=== PATIENT | male | born 1980 | race African-American/Black ===

== ENCOUNTER 2017-08-09 12:33 | Inpatient (IN) | payer OTHER ==
[2017-08-09 13:18] VITALS: BMI 20.7
--- NOTE | 2017-08-09 14:27 | HP ---
CIWA Score - CIWA Score Nausea/Vomitin Muscle Tremors: 2 Anxiety: 3 Agitation: 2 Paroxysmal Sweats: 3 Orientation: 0-Oriented Tacttile Disturbances: 1-Very Mild Itch/Numbness Auditory Disturbances: 0-None Visual Disturbances: 0-None Headache: 0-None Present CIWA-Ar Total Score: 14 Admission ROS S - HPI Chief Complaint: I have been drinking more than usual and need detox. Allergies/Adverse Reactions: Allergies Allergy/AdvReac Type Severity Reaction Status Date / Time No Known Allergies Allergy Verified 08/09/17 14:13 History of Present Illness: H/O etoh abuse, dep. since age 13 . Pt needs seeking detox. Exam Limitations: No Limitations - Ebola screening Have you traveled outside of the country in the last 21 days: No Have you had contact with anyone from an Ebola affected area: No Have you been sick,other than usual withdrawal symptoms: No - Review of Systems Constitutional: Loss of Appetite, Changes in sleep, Unintentional Wgt. Loss (8 lbs wt loss x 3 months) EENT: reports: No Symptoms Reported Respiratory: reports: No Symptoms reported Cardiac: reports: No Symptoms Reported GI: reports: Poor Appetite, Indigestion : reports: No Symptoms Reported Musculoskeletal: reports: No Symptoms Reported Integumentary: reports: No Symptoms Reported Neuro: reports: Tremors Endocrine: reports: No Symptoms Reported Hematology: reports: No Symptoms Reported Psychiatric: reports: No Sypmtoms Reported Other Systems: Reviewed and Negative Patient History - Patient Medical History Hx Anemia: Yes (NO CURRENT MEDS) Hx Asthma: No Hx Chronic Obstructive Pulmonary Disease (COPD): No Hx Cancer: No Hx Cardiac Disorders: No Hx Congestive Heart Failure: No Hx Hypertension: No Hx Hypercholesterolemia: No Hx Pacemaker: No HX Cerebrovascular Accident: No Hx Seizures: No Hx Dementia: No Hx Diabetes: No Hx Gastrointestinal Disorders: No Hx Genitourinary Disorders: No Hx Sexually Transmitted Disorders: No Hx Renal Disease (ESRD): No Hx Thyroid Disease: No Hx Human Immunodeficiency Virus (HIV): Yes (SINCE JANUARY 2014; HX DX PCP PNEUMONIA AND ORAL THRUSH.) Hx Hepatitis C: No Hx Depression: No Hx Suicide Attempt: Yes (Tried to overdose at age 15 yrs old.) Hx Bipolar Disorder: No Hx Schizophrenia: No - Patient Surgical History Past Surgical History: No Hx Neurologic Surgery: No Hx Cataract Extraction: No Hx Cardiac Surgery: No Hx Lung Surgery: No Hx Breast Surgery: No Hx Breast Biopsy: No Hx Abdominal Surgery: No Hx Appendectomy: No Hx Cholecystectomy: No Hx Genitourinary Surgery: No Hx Section: No Hx Orthopedic Surgery: No Other Surgical History: ORAL SX 02/03 Anesthesia Reaction: No - PPD History Date: 07/03/16 Results: 0 mm - Reproductive History Patient is a Female of Child Bearing Age (11 -55 yrs old): No - Smoking Cessation Smoking history: Current every day smoker Have you smoked in the past 12 months: Yes Aproximately how many cigarettes per day: 10 Cigars Per Day: 0 Hx Chewing Tobacco Use: No Initiated information on smoking cessation: Yes 'Breaking Loose' booklet given: 08/09/17 - Substance & Tx. History Hx Alcohol Use: Yes Hx Substance Use: Yes Substance Use Type: Alcohol, Cocaine Hx Substance Use Treatment: Yes ([facility]) - Substances Abused Alcohol Route: Oral Frequency: Daily Amount used: 1 PINT VODkA Age of first use: 13 Date of Last Use: 08/09/17 Crack Route: Smoking Frequency: Daily Amount used: $30 Age of first use: 31 Date of Last Use: 08/09/17 Marijuana/Hashish Route: Smoking Frequency: 1-2 times per week Amount used: 1 JOINT Age of first use: 13 Date of Last Use: 08/09/17 Family Disease History - Family Disease History Family Disease History: CA: Mother (BREAST &KIDNEY-) Admission Physical Exam BHS - Vital Signs Vital Signs: Vital Signs - 24 hr 08/09/17 13:16 Temperature 97.8 F Pulse Rate 80 Respiratory 18 Rate Blood Pressure 107/64 36 y/o thin m pt aox3 in nad ambulating well - Physical General Appearance: Yes: No Apparent Distress, Appropriately Dressed, Thin, Sweating HEENTM: Yes: EOMI, Hearing grossly Normal, Normal Voice, SUNNY Respiratory: Yes: Chest Non-Tender, Lungs Clear, Normal Breath Sounds, No Respiratory Distress Neck: Yes: No masses,lesions,Nodules, Supple, Trachea in good position Breast: Yes: Within Normal Limits Cardiology: Yes: Regular Rhythm, Regular Rate, S1, S2 Abdominal: Yes: Normal Bowel Sounds, Non Tender, Flat, Soft, Increased Bowel Sounds Genitourinary: Yes: Within Normal Limits Back: Yes: Within Normal Limits Musculoskeletal: Yes: Within Normal Limits Extremities: Yes: Within Normal Limits 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 NML intact, Fully Oriented, Alert, Motor Strength 5/5, Finger to Nose Integumentary: Yes: Moist Lymphatic: Yes: Adenopathy - Diagnostic (1) Alcohol dependence with uncomplicated withdrawal Current Visit: No Status: Chronic (2) Cannabis dependence Current Visit: No Status: Chronic (3) Cocaine dependence Current Visit: No Status: Chronic Qualifiers: Substance use status: uncomplicated Qualified Code(s): F14.20 - Cocaine dependence, uncomplicated (4) Nicotine dependence Current Visit: No Status: Chronic Qualifiers: Nicotine product type: cigarettes Substance use status: uncomplicated Qualified Code(s): F17.210 - Nicotine dependence, cigarettes, uncomplicated (5) Weight loss Current Visit: No Status: Acute (6) AIDS (acquired immune deficiency syndrome) Current Visit: No Status: Chronic Cleared for Admission S - Detox or Rehab [facility] Level of Care: Medically Managed Detox Regimen/Protocol: Librium S Breath Alcohol Content Breath Alcohol Content: 0 Urine Drug Screen - Results Drug Screen Negative: No Urine Drug Screen Results: THC-Marijuana, CHERYL-Cocaine
[2017-08-09] MEDS ORDERED: P-EPHED 60MG/TRIPROLIDI 2.5MG TABLET PO PRN (14:38)
[2017-08-09] MEDS ORDERED: MAGNESIUM CITRATE 300 ML BOTTLE PO PRN (14:38)
[2017-08-09] MEDS ORDERED: IBUPROFEN 400 MG TABLET (FP) PO PRN (14:38)
[2017-08-09] MEDS ORDERED: NICOTINE POLACRILEX 4 MG GUM BUC PRN (14:38)
[2017-08-09] MEDS ORDERED: ACETAMINOPHEN 325 MG TABLET (FP) PO PRN (14:38)
[2017-08-09] MEDS ORDERED: MAGNESIUM HYDROX 2400MG/30ML ORAL SUSPENSION 30 ML CUP PO PRN (14:38)
[2017-08-09] MEDS ORDERED: guaiFENesin/D-METHORPHAN HB 10 ML UNIT-DOSE CUPS PO PRN (14:38)
[2017-08-09] MEDS ORDERED: chlordiazePOXIDE HCL 25 MG CAPSULE PO PRN (14:38)
[2017-08-09] MEDS ORDERED: LOPERAMIDE HCL 2 MG CAPSULE PO PRN (14:38)
[2017-08-09] MEDS ORDERED: MAG HYDROX/AL HYDROX/SIMETH 30 ML UNIT-DOSE CUP PO PRN (14:38)
[2017-08-09] MEDS ORDERED: MENTHOL/PHENOL 1 EACH UD MM PRN (14:38)
[2017-08-09] MEDS ORDERED: COLLOIDAL OATMEAL 1 BAR EACH TP PRN (14:44)
[2017-08-09] MEDS: chlordiazePOXIDE HCL 25 MG CAPSULE PO SCH ×2 (18:05→22:09)
[2017-08-09] MEDS ORDERED: THIAMINE HCL 100 MG TABLET (FP) PO SCH (22:00)
[2017-08-10 01:18] LABS: URINE APPEARANCE CLEAR; URINE BILIRUBIN NEGATIVE (NEGATIVE); URINE BLOOD NEGATIVE (NEGATIVE); URINE COLOR YELLOW; URINE GLUCOSE (UA) NEGATIVE (NEGATIVE); URINE KETONE NEGATIVE (NEGATIVE); URINE LEUK ESTERASE NEGATIVE (NEGATIVE); URINE NITRITE NEGATIVE (NEGATIVE); URINE PROTEIN NEGATIVE (NEGATIVE)
[2017-08-10] MEDS: chlordiazePOXIDE HCL 25 MG CAPSULE PO SCH ×2 (05:38→10:05)
--- NOTE | 2017-08-10 09:15 | PN ---
[facility] CIWA - CIWA Score Nausea/Vomitin-No Nausea/No Vomiting Muscle Tremors: 4-Moderate,w/Arms Extend Anxiety: 4-Mod. Anxious/Guarded Agitation: 4-Moderately Restless Paroxysmal Sweats: 3 Orientation: 0-Oriented Tacttile Disturbances: 0-None Auditory Disturbances: 0-None Visual Disturbances: 0-None Headache: 0-None Present CIWA-Ar Total Score: 15 BHS Progress Note (SOAP) Subjective: sweats shakes interrupted sleep agitation Objective: 08/10/17 09:13 Vital Signs Temperature 97.4 F L 08/10/17 06:26 Pulse Rate 57 L 08/10/17 06:26 Respiratory Rate 16 08/10/17 06:26 Blood Pressure 101/64 08/10/17 06:26 O2 Sat by Pulse Oximetry (%) Laboratory Tests 08/09/17 21:52 Urine Color Yellow Urine Appearance Clear Urine pH 5.0 D Ur Specific [place] 1.029 Urine Protein Negative Urine Glucose (UA) Negative Urine Ketones Negative Urine Blood Negative Urine Nitrite Negative Urine Bilirubin Negative Urine Urobilinogen 2.0 rest of labs pending aaox3 ambulating no acute distress Assessment: 08/10/17 09:14 withdrawal sx Plan: continue detox increase fluids labs pending
[2017-08-10 09:55] LABS: MCH 22.9 pg (25.7-33.7); MCHC 30.3 g/dl (32.0-35.9); MEAN CELL VOLUME 75.4 fl (80-96); MEAN PLT VOLUME 10.3 fl (7.5-11.1); PLATELET COUNT 145 K/MM3 (134-434); RDW 15.7 % (11.9-15.9); WHITE BLOOD COUNT 3.8 K/mm3 (4.0-10.0)
[2017-08-10] MEDS ORDERED: RITONAVIR 100 MG TABLET PO SCH (10:00)
[2017-08-10] MEDS ORDERED: NICOTINE 21 MG/24 HOURS TOPICAL PATCH TD SCH (10:00)
[2017-08-10] MEDS ORDERED: EMTRICITABINE/TENOFOV ALAFENAM (DESCOVY) TABLET PO SCH (10:00)
[2017-08-10] MEDS ORDERED: PRENATAL VITAMINS W/ FOLIC ACID TABLET (FP) PO SCH (10:00)
[2017-08-10] MEDS ORDERED: DARUNAVIR ETHANOLATE 800 MG TAB PO SCH (10:00)
[2017-08-10 10:24] LABS: ALBUMIN 3.1 g/dl (3.4-5.0); ALK PHOS 50 U/L (45-117); ANION GAP 8 (8-16); BILIRUBIN,TOTAL 0.4 mg/dL (0.2-1.0); CALCIUM 8.2 mg/dL (8.5-10.1); CO2 23 mmol/L (21-32); CREATININE 0.8 mg/dL (0.7-1.3); GLUCOSE,RANDOM 87 mg/dL (74-106); SGOT/AST 14 U/L (15-37); SGPT/ALT 22 U/L (12-78); TOT PROT 6.5 g/dl (6.4-8.2)
[2017-08-10 13:27] LABS: URINE LEUK ESTERASE Negative (NEGATIVE)
--- NOTE | 2017-08-10 16:36 | EKG ---
Test Reason : Blood Pressure : / mmHG Vent. Rate : 057 BPM Atrial Rate : 057 BPM P-R Int : 168 ms QRS Dur : 108 ms QT Int : 384 ms P-R-T Axes : 057 -60 061 degrees QTc Int : 373 ms SINUS BRADYCARDIA LEFT AXIS DEVIATION INCOMPLETE RIGHT BUNDLE BRANCH BLOCK ABNORMAL ECG NO PREVIOUS ECGS AVAILABLE Confirmed by RANDAL KELLEY MD ([id number]) on 08/10/2017 4:36:17 PM Referred By: Confirmed By:RANDAL KELLEY MD
[2017-08-10] MEDS ORDERED: chlordiazePOXIDE HCL 25 MG CAPSULE PO SCH (17:00)
[2017-08-10 17:53] VITALS: BP 112/58; PULSE 71; TEMP 98.4
--- NOTE | 2017-08-10 23:13 | DS ---
[facility] Detox Discharge Summary Admission Date: 08/09/17 Discharge Date: 08/10/17 - History Present History: Alcohol Dependence Additional Comments: PATIENT INSISTS TO LEAVE THE FACILITY REFUSES FACE TO FACE WITH THE PROVIDER - Physical Exam Results Vital Signs: Vital Signs Temperature 98.4 F 08/10/17 17:52 Pulse Rate 71 08/10/17 17:52 Respiratory Rate 18 08/10/17 17:52 Blood Pressure 112/58 08/10/17 17:52 O2 Sat by Pulse Oximetry (%) Pertinent Admission Physical Exam Findings: WITHDRAWAL SX Vital Signs Temperature 98.4 F 08/10/17 17:52 Pulse Rate 71 08/10/17 17:52 Respiratory Rate 18 08/10/17 17:52 Blood Pressure 112/58 08/10/17 17:52 O2 Sat by Pulse Oximetry (%) Laboratory Last Values WBC 3.8 K/mm3 (4.0-10.0) L 08/10/17 07:00 RBC 5.37 M/mm3 (4.00-5.60) 08/10/17 07:00 Hgb 12.3 GM/dL (11.7-16.9) 08/10/17 07:00 Hct 40.5 % (35.4-49) 08/10/17 07:00 MCV 75.4 fl (80-96) L 08/10/17 07:00 MCH 22.9 pg (25.7-33.7) L 08/10/17 07:00 MCHC 30.3 g/dl (32.0-35.9) L 08/10/17 07:00 RDW 15.7 % (11.9-15.9) 08/10/17 07:00 Plt Count 145 K/MM3 (134-434) 08/10/17 07:00 MPV 10.3 fl (7.5-11.1) 08/10/17 07:00 Sodium 143 mmol/L (136-145) 08/10/17 07:00 Potassium 4.4 mmol/L (3.5-5.1) 08/10/17 07:00 Chloride 112 mmol/L (98-107) H 08/10/17 07:00 Carbon Dioxide 23 mmol/L (21-32) 08/10/17 07:00 Anion Gap 8 (8-16) 08/10/17 07:00 BUN 13 mg/dL (7-18) 08/10/17 07:00 Creatinine 0.8 mg/dL (0.7-1.3) D 08/10/17 07:00 Creat Clearance w eGFR > 60 (>60) 08/10/17 07:00 Random Glucose 87 mg/dL (74-106) 08/10/17 07:00 Calcium 8.2 mg/dL (8.5-10.1) L 08/10/17 07:00 Total Bilirubin 0.4 mg/dL (0.2-1.0) D 08/10/17 07:00 AST 14 U/L (15-37) L 08/10/17 07:00 ALT 22 U/L (12-78) 08/10/17 07:00 Alkaline Phosphatase 50 U/L (45-117) D 08/10/17 07:00 Total Protein 6.5 g/dl (6.4-8.2) 08/10/17 07:00 Albumin 3.1 g/dl (3.4-5.0) L 08/10/17 07:00 Urine Color Yellow 08/09/17 21:52 Urine Appearance Clear 08/09/17 21:52 Urine pH 5.0 (5.0-8.0) D 08/09/17 21:52 Ur Specific [place] 1.029 (1.001-1.035) 08/09/17 21:52 Urine Protein Negative (NEGATIVE) 08/09/17 21:52 Urine Glucose (UA) Negative (NEGATIVE) 08/09/17 21:52 Urine Ketones Negative (NEGATIVE) 08/09/17 21:52 Urine Blood Negative (NEGATIVE) 08/09/17 21:52 Urine Nitrite Negative (NEGATIVE) 08/09/17 21:52 Urine Bilirubin Negative (NEGATIVE) 08/09/17 21:52 Urine Urobilinogen 2.0 mg/dL (0.2-1.0) 08/09/17 21:52 Ur Leukocyte Esterase Negative (NEGATIVE) 08/09/17 21:52 LAB NOTED - Treatment Hospital Course: Detox Protocol Followed, Discharged Condition Good - Medication Discharge Medications: Ambulatory Orders Emtricitabine/Tenofovir [Truvada -] 1 tab PO DAILY 05/19/15 Emtricitabine/Tenofov Alafenam [Descovy 200-25 mg Tablet (Nf)] 1 each PO DAILY 08/09/17 - Diagnosis (1) Weight loss Status: Acute (2) AIDS (acquired immune deficiency syndrome) Status: Chronic (3) Alcohol dependence with uncomplicated withdrawal Status: Acute (4) Nicotine dependence Status: Acute Qualifiers: Nicotine product type: cigarettes Substance use status: in withdrawal Qualified Code(s): F17.213 - Nicotine dependence, cigarettes, with withdrawal - AMA Did Patient Leave Against Medical Advice: Yes
[2017-08-11] MEDS ORDERED: chlordiazePOXIDE 5 MG CAPSULE PO SCH (17:00)
[2017-08-12] MEDS ORDERED: chlordiazePOXIDE HCL 10 MG CAPSULE PO SCH (17:00)
== END 2017-08-10 18:30 | disposition left against medical advice (07) | DRG 770 ==
LOC: YASAS 12:33 → Y6N 15:22
PROVIDERS: ADMIT Internal Medicine; ATTEND Internal Medicine
PROC: HZ2ZZZZ Detoxification Services for Substance Abuse Treatment (ICD-10-PCS; principal; 2017-08-09)
DX: F10.230 Alcohol dependence with withdrawal, uncomplicated (principal); F14.20 Cocaine dependence, uncomplicated; F12.20 Cannabis dependence, uncomplicated; F17.213 Nicotine dependence, cigarettes, with withdrawal; F19.24 Other psychoactive substance dependence with psychoactive substance-induced mood disorder; B20 Human immunodeficiency virus [HIV] disease; L98.8 Other specified disorders of the skin and subcutaneous tissue; A60.01 Herpesviral infection of penis; G62.9 Polyneuropathy, unspecified; Z87.898 Personal history of other specified conditions; Z91.5 Personal history of self-harm
CPT/HCPCS: 36415; 80053; 81003; 85027; 86593; 93005; 93010

== ENCOUNTER 2018-03-05 10:17 | Inpatient (IN) | payer OTHER ==
[2018-03-05 10:34] VITALS: BMI 21.0
--- NOTE | 2018-03-05 10:59 | HP ---
CIWA Score - CIWA Score Nausea/Vomitin-No Nausea/No Vomiting Muscle Tremors: 1-None Visible, but [place] Anxiety: 4-Mod. Anxious/Guarded Agitation: 3 Paroxysmal Sweats: 2 Orientation: 0-Oriented Tacttile Disturbances: 0-None Auditory Disturbances: 2-Mild Harshness/Frighten Visual Disturbances: 0-None Headache: 1-Very Mild CIWA-Ar Total Score: 13 Admission [facility] - HPI Chief Complaint: ETOH WITHDRAWAL SYMPTOMS. Allergies/Adverse Reactions: Allergies Allergy/AdvReac Type Severity Reaction Status Date / Time No Known Allergies Allergy Verified 03/05/18 10:32 History of Present Illness: PATIENT PRESENTS WITH ETOH WITHDRAWAL SYMPTOMS AND COCAINE/MARIJUANA DEPENDENCE. PATIENT STARTED DRINKING AND SMOKING MARIJUANA AT AGE 14. PATIENT STARTED SMOKING CRACK AT AGE 32. LAST TIME ALL SUBSTANCES USED WAS YESTERDAY. PATIENT DRINKS 1/2 PINT OF LIQUOR WITH 4-5 BEERS DAILY, 1-2 JOINTS WEEKLY AND 20 DOLLARS OF CRACK DAILY. DENIES HX OF SEIZURES. PMH INCLUDES HIV/AIDS. PATIENT STATES HE IS COMPLIANT WITH MEDICATION AND LAST DOSE THIS MORNING. PATIENT DOES NOT HAVE MEDICINE WITH HIM. DENIES SI/HI AND SUICIDE ATTEMPTS. LAST DETOX ADMISSION 08/06. Exam Limitations: No Limitations - Ebola screening Have you traveled outside of the country in the last 21 days: No Have you had contact with anyone from an Ebola affected area: No Have you been sick,other than usual withdrawal symptoms: No Do you have a fever: No - Review of Systems Constitutional: Night Sweats, Changes in sleep, Unintentional Wgt. Loss EENT: reports: No Symptoms Reported Respiratory: reports: No Symptoms reported Cardiac: reports: No Symptoms Reported GI: reports: Poor Fluid Intake, Abdominal cramping : reports: No Symptoms Reported Musculoskeletal: reports: No Symptoms Reported Integumentary: reports: Sweating Neuro: reports: Tremors Endocrine: reports: Unexplained Weight Loss Hematology: reports: No Symptoms Reported Psychiatric: reports: Orientated x3, Agitated, Anxious, Depressed Patient History - Patient Medical History Hx Anemia: Yes (NO CURRENT MEDS) Hx Asthma: No Hx Chronic Obstructive Pulmonary Disease (COPD): No Hx Cancer: No Hx Cardiac Disorders: No Hx Congestive Heart Failure: No Hx Hypertension: No Hx Hypercholesterolemia: No Hx Pacemaker: No HX Cerebrovascular Accident: No Hx Seizures: No Hx Dementia: No Hx Diabetes: No Hx Gastrointestinal Disorders: No Hx Liver Disease: No Hx Genitourinary Disorders: No Hx Sexually Transmitted Disorders: No Hx Renal Disease (ESRD): No Hx Thyroid Disease: No Hx Human Immunodeficiency Virus (HIV): Yes (SINCE JANUARY 2014; HX DX PCP PNEUMONIA AND ORAL THRUSH.) Hx Hepatitis C: No Hx Depression: No Hx Suicide Attempt: No Hx Bipolar Disorder: No Hx Schizophrenia: No - Patient Surgical History Past Surgical History: No Hx Neurologic Surgery: No Hx Cataract Extraction: No Hx Cardiac Surgery: No Hx Lung Surgery: No Hx Breast Surgery: No Hx Breast Biopsy: No Hx Abdominal Surgery: No Hx Appendectomy: No Hx Cholecystectomy: No Hx Genitourinary Surgery: No Hx Orthopedic Surgery: No Other Surgical History: ORAL SX 02/03 Anesthesia Reaction: No - PPD History Previous Implant?: Yes Documented Results: Negative w/proof Implanted On Prior [facility] Admission?: Yes Date: 07/03/16 Results: 0 mm PPD to be Administered?: Yes - Smoking Cessation Smoking history: Current every day smoker Have you smoked in the past 12 months: Yes Aproximately how many cigarettes per day: 10 Cigars Per Day: 0 Hx Chewing Tobacco Use: No Initiated information on smoking cessation: Yes 'Breaking Loose' booklet given: 03/05/18 - Substance & Tx. History Hx Alcohol Use: Yes Hx Substance Use: Yes Substance Use Type: Alcohol, Cocaine, Marijuana - Substances Abused Crack Route: Smoking Frequency: Daily Amount used: $20 Age of first use: 30 Date of Last Use: 03/04/18 Alcohoil-vodka/beer Route: Oral Frequency: Daily Amount used: 1/2 pt./3-6 (12 oz.) Age of first use: 14 Date of Last Use: 03/04/18 Marijuana Route: Smoking Frequency: 3-6 times per week Amount used: $10 Age of first use: 14 Date of Last Use: 03/03/18 Family Disease History - Family Disease History Family Disease History: CA: Mother (BREAST &KIDNEY-) Admission Physical Exam BHS - Vital Signs Vital Signs: Vital Signs - 24 hr 03/05/18 10:28 Temperature 97.7 F Pulse Rate 58 L Respiratory 16 Rate Blood Pressure 117/69 - Physical General Appearance: Yes: No Apparent Distress, Appropriately Dressed, Thin, Tremorous, Irritable, Sweating HEENTM: Yes: EOMI, Hearing grossly Normal, Normocephalic, Normal Voice, SUNNY, Pharynx Normal Respiratory: Yes: Chest Non-Tender, Lungs Clear, Normal Breath Sounds, No Respiratory Distress, No Accessory Muscle Use Neck: Yes: No masses,lesions,Nodules, Supple Breast: Yes: Breast Exam Deferred Cardiology: Yes: Regular Rhythm, Regular Rate, S1, S2 Abdominal: Yes: Within Normal Limits, Normal Bowel Sounds, Non Tender, Flat Genitourinary: Yes: Within Normal Limits Back: Yes: Muscle Spasm Musculoskeletal: Yes: full range of Motion, Gait Steady, Back pain Extremities: Yes: Normal Inspection, Normal Range of Motion, Non-Tender, Tremors 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 NML intact, Fully Oriented, Alert, Motor Strength 5/5, Normal Response, Depressed Affect Integumentary: Yes: Normal Color, Warm, Moist Lymphatic: Yes: Within Normal Limits - Diagnostic (1) Alcohol dependence with uncomplicated withdrawal Current Visit: Yes Status: Acute (2) History of depression Current Visit: Yes Status: Suspected (3) Nicotine dependence Current Visit: Yes Status: Chronic Qualifiers: Nicotine product type: cigarettes Substance use status: uncomplicated Qualified Code(s): F17.210 - Nicotine dependence, cigarettes, uncomplicated (4) Weight loss Current Visit: Yes Status: Acute (5) AIDS (acquired immune deficiency syndrome) Current Visit: Yes Status: Chronic (6) Cannabis dependence Current Visit: Yes Status: Chronic (7) Cocaine dependence Current Visit: Yes Status: Chronic Qualifiers: Substance use status: uncomplicated Qualified Code(s): F14.20 - Cocaine dependence, uncomplicated Cleared for Admission [facility] - Detox or Rehab [facility] Level of Care: Medically Managed Detox Regimen/Protocol: Librium [facility] Breath Alcohol Content Breath Alcohol Content: 0 Urine Drug Screen - Results Drug Screen Negative: No Urine Drug Screen Results: THC-Marijuana, CHERYL-Cocaine
[2018-03-05] MEDS ORDERED: P-EPHED 60MG/TRIPROLIDI 2.5MG TABLET PO PRN (11:12)
[2018-03-05] MEDS ORDERED: IBUPROFEN 400 MG TABLET (FP) PO PRN (11:12)
[2018-03-05] MEDS ORDERED: hydrOXYzine PAMOATE 50 MG CAPSULE (FP) PO PRN (11:12)
[2018-03-05] MEDS ORDERED: MAGNESIUM CITRATE 300 ML BOTTLE PO PRN (11:12)
[2018-03-05] MEDS ORDERED: LOPERAMIDE HCL 2 MG CAPSULE PO PRN (11:12)
[2018-03-05] MEDS ORDERED: MAG HYDROX/AL HYDROX/SIMETH 30 ML UNIT-DOSE CUP PO PRN (11:12)
[2018-03-05] MEDS ORDERED: MENTHOL/PHENOL 1 EACH UD MM PRN (11:12)
[2018-03-05] MEDS ORDERED: guaiFENesin/D-METHORPHAN HB 10 ML UNIT-DOSE CUPS PO PRN (11:12)
[2018-03-05] MEDS ORDERED: MAGNESIUM HYDROX 2400MG/30ML ORAL SUSPENSION 30 ML CUP PO PRN (11:12)
[2018-03-05] MEDS ORDERED: ACETAMINOPHEN 325 MG TABLET (FP) PO PRN (11:12)
[2018-03-05] MEDS ORDERED: chlordiazePOXIDE HCL 25 MG CAPSULE PO PRN (11:17)
--- NOTE | 2018-03-05 11:23 | CONSULT ---
[facility] Psychiatric Consult - Data Date of interview: 03/05/18 Admission source: [facility] Identifying data: This is 37 years male, single father of three, living alone, on PA, with no psychiatric hospitalization history, is here reporting withdrawal symptoms of Alcohol and Cocaine, Cannabis intoxication and seeking for detox. Substance Abuse History: Smoking history: Current every day smoker. Have you smoked in the past 12 months: Yes. Aproximately how many cigarettes per day: 10. Cigars Per Day: 0. Hx Chewing Tobacco Use: No. Initiated information on smoking cessation: Yes. 'Breaking Loose' booklet given: 03/05/18. - Substance & Tx. History. Hx Alcohol Use: Yes. Hx Substance Use: Yes. Substance Use Type : Alcohol, Cocaine, Marijuana. - Substances Abused. Crack. Route: Smoking. Frequency: Daily. Amount used: $20. Age of first use: 30. Date of Last Use: 03/04/18. Alcohoil-vodka/beer. Route: Oral. Frequency: Daily. Amount used: 1/2 pt./3-6 (12 oz.). Age of first use: 14. Date of Last Use: . Marijuana. Route: Smoking. Frequency: 3-6 times per week. Amount used: $10. Age of first use: 14. Date of Last Use: 03/03/18 Medical History: Weight loss history, AIDs, Psychiatric History: Patient reports history of depression, reports no medications taking prior to admission, reports [id number] suicidal, homicidal history as well. Physical/Sexual Abuse/Trauma History: Denies Additional Comment: Observation. Detox Unit Care Protocol Mental Status Exam - Mental Status Exam Alert and Oriented to: Person Cognitive Function: Fair Patient Appearance: Well Groomed Mood: Apprehensive Affect: Mood Congruent Patient Behavior: Cooperative Speech Pattern: Appropriate Voice Loudness: Normal Thought Process: Goal Oriented Thought Disorder: Being Controlled Hallucinations: Denies Suicidal Ideation: Denies Homicidal Ideation: Denies Insight/Judgement: Fair Sleep: Difficulty falling asleep Appetite: Weight loss Muscle strength/Tone: Normal Gait/Station: Normal Additional Comments: Observation. Detox Unit Care Protocol Psychiatric Findings - Problem List ([place] 1, 2,3) (1) Drug-induced mood disorder Current Visit: Yes Status: Acute (2) Alcohol dependence with uncomplicated withdrawal Current Visit: Yes Status: Acute (3) Weight loss Current Visit: Yes Status: Acute (4) AIDS (acquired immune deficiency syndrome) Current Visit: Yes Status: Chronic (5) Cannabis dependence Current Visit: Yes Status: Chronic (6) Cocaine dependence Current Visit: Yes Status: Chronic Qualifiers: Substance use status: uncomplicated Qualified Code(s): F14.20 - Cocaine dependence, uncomplicated (7) Nicotine dependence Current Visit: Yes Status: Chronic Qualifiers: Nicotine product type: cigarettes Substance use status: uncomplicated Qualified Code(s): F17.210 - Nicotine dependence, cigarettes, uncomplicated (8) Neuropathy Current Visit: No Status: Chronic - Initial Treatment Plan Initial Treatment Plan: Observation. Detox Unit Care Protocol
[2018-03-05 15:00] LABS: HEMATOCRIT 40.7 % (35.4-49); HEMOGLOBIN 12.8 GM/dL (11.7-16.9); MCH 23.4 pg (25.7-33.7); MCHC 31.4 g/dl (32.0-35.9); MEAN CELL VOLUME 74.7 fl (80-96); MEAN PLT VOLUME 10.8 fl (7.5-11.1); PLATELET COUNT 166 K/MM3 (134-434); RBC 5.45 M/mm3 (4.00-5.60); RDW 15.1 % (11.9-15.9); WHITE BLOOD COUNT 4.3 K/mm3 (4.0-10.0)
[2018-03-05 15:13] LABS: ALBUMIN 3.6 g/dl (3.4-5.0); ANION GAP 6 (8-16); BLOOD UREA NITROGEN 14 mg/dL (7-18); CALCIUM 8.9 mg/dL (8.5-10.1); CHLORIDE 111 mmol/L (98-107); CO2 24 mmol/L (21-32); CREATININE 1.1 mg/dL (0.7-1.3); GLUCOSE,RANDOM 94 mg/dL (74-106); POTASSIUM 4.1 mmol/L (3.5-5.1); SGOT/AST 24 U/L (15-37); SGPT/ALT 25 U/L (12-78); SODIUM 141 mmol/L (136-145)
[2018-03-05 15:15] LABS: ALK PHOS 58 U/L (45-117); BILIRUBIN,TOTAL 0.4 mg/dL (0.2-1.0); TOT PROT 7.2 g/dl (6.4-8.2)
[2018-03-05 17:28] LABS: URINE APPEARANCE CLEAR; URINE BILIRUBIN NEGATIVE (<2.0 mg/dL); URINE COLOR YELLOW; URINE GLUCOSE (UA) NEGATIVE (NEGATIVE); URINE KETONE NEGATIVE (NEGATIVE); URINE LEUK ESTERASE NEGATIVE (NEGATIVE); URINE NITRITE NEGATIVE (NEGATIVE); URINE PROTEIN NEGATIVE (NEGATIVE); URINE UROBILINOGEN NEGATIVE mg/dL (0.2-1.0)
[2018-03-05] MEDS: chlordiazePOXIDE HCL 25 MG CAPSULE PO SCH ×3 (17:32→22:40)
[2018-03-05] MEDS ORDERED: MELATONIN 5 MG TABLETS PO PRN (22:00)
[2018-03-05] MEDS: THIAMINE HCL 100 MG TABLET (FP) PO SCH (22:40)
[2018-03-06] MEDS: chlordiazePOXIDE HCL 25 MG CAPSULE PO SCH ×4 (05:20→22:07)
[2018-03-06] MEDS ORDERED: LIDOCAINE VISCOUS 2% ORAL/TOP 20 ML UNIT-DOSE CUP MM PRN (08:57)
--- NOTE | 2018-03-06 09:14 | PN ---
S CIWA - CIWA Score Nausea/Vomitin-Mild Nausea/No Vomiting Muscle Tremors: 4-Moderate,w/Arms Extend Anxiety: 2 Agitation: 3 Paroxysmal Sweats: 1-Minimal Palms Moist Orientation: 0-Oriented Tacttile Disturbances: 1-Very Mild Itch/Numbness Auditory Disturbances: 0-None Visual Disturbances: 0-None Headache: 2-Mild CIWA-Ar Total Score: 14 BHS Progress Note (SOAP) Subjective: sweat tremor restlessness c/o left lower tooth ache denies trauma Objective: 03/06/18 09:10 Vital Signs Temperature 96.1 F L 03/06/18 07:53 Pulse Rate 59 L 03/06/18 07:53 Respiratory Rate 18 03/06/18 07:53 Blood Pressure 105/59 03/06/18 07:53 O2 Sat by Pulse Oximetry (%) Laboratory Last Values WBC 4.3 K/mm3 (4.0-10.0) 03/05/18 11:05 RBC 5.45 M/mm3 (4.00-5.60) 03/05/18 11:05 Hgb 12.8 GM/dL (11.7-16.9) 03/05/18 11:05 Hct 40.7 % (35.4-49) 03/05/18 11:05 MCV 74.7 fl (80-96) L 03/05/18 11:05 MCH 23.4 pg (25.7-33.7) L 03/05/18 11:05 MCHC 31.4 g/dl (32.0-35.9) L 03/05/18 11:05 RDW 15.1 % (11.9-15.9) 03/05/18 11:05 Plt Count 166 K/MM3 (134-434) 03/05/18 11:05 MPV 10.8 fl (7.5-11.1) 03/05/18 11:05 Sodium 141 mmol/L (136-145) 03/05/18 11:05 Potassium 4.1 mmol/L (3.5-5.1) 03/05/18 11:05 Chloride 111 mmol/L (98-107) H 03/05/18 11:05 Carbon Dioxide 24 mmol/L (21-32) 03/05/18 11:05 Anion Gap 6 (8-16) L 03/05/18 11:05 BUN 14 mg/dL (7-18) 03/05/18 11:05 Creatinine 1.1 mg/dL (0.7-1.3) 03/05/18 11:05 Creat Clearance w eGFR > 60 (>60) 03/05/18 11:05 Random Glucose 94 mg/dL (74-106) 03/05/18 11:05 Calcium 8.9 mg/dL (8.5-10.1) 03/05/18 11:05 Total Bilirubin 0.4 mg/dL (0.2-1.0) 03/05/18 11:05 AST 24 U/L (15-37) D 03/05/18 11:05 ALT 25 U/L (12-78) 03/05/18 11:05 Alkaline Phosphatase 58 U/L (45-117) 03/05/18 11:05 Total Protein 7.2 g/dl (6.4-8.2) 03/05/18 11:05 Albumin 3.6 g/dl (3.4-5.0) 03/05/18 11:05 Urine Color Yellow 03/05/18 16:00 Urine Appearance Clear 03/05/18 16:00 Urine pH 5.0 (5.0-8.0) 03/05/18 16:00 Ur Specific [place] 1.027 (1.001-1.035) 03/05/18 16:00 Urine Protein Negative (NEGATIVE) 03/05/18 16:00 Urine Glucose (UA) Negative (NEGATIVE) 03/05/18 16:00 Urine Ketones Negative (NEGATIVE) 03/05/18 16:00 Urine Blood Negative (NEGATIVE) 03/05/18 16:00 Urine Nitrite Negative (NEGATIVE) 03/05/18 16:00 Urine Bilirubin Negative (<2.0 mg/dL) 03/05/18 16:00 Urine Urobilinogen Negative mg/dL (0.2-1.0) 03/05/18 16:00 Ur Leukocyte Esterase Negative (NEGATIVE) 03/05/18 16:00 RPR Titer Nonreactive (NONREACTIVE) 03/05/18 11:05 lab noted left lower tooth decay able to chew regular food ate 90% breakfast speech clearly no drooling Assessment: 03/06/18 09:12 withdrawal sx tooth decay Plan: continue detox lidocain 2% chlorhexidine mouth rinsing after each meal amoxicillin 500 mg tid oral hygiene
[2018-03-06] MEDS: PRENATAL VITAMINS W/ FOLIC ACID TABLET (FP) PO SCH (10:17)
[2018-03-06] MEDS: EMTRICITABINE/TENOFOV ALAFENAM (DESCOVY) TABLET PO SCH (10:18)
[2018-03-06] MEDS: DARUNAVIR 800 MG/COBICISTAT 150MG TABLET PO SCH (10:18)
--- NOTE | 2018-03-06 11:32 | EKG ---
Test Reason : Blood Pressure : / mmHG Vent. Rate : 057 BPM Atrial Rate : 057 BPM P-R Int : 168 ms QRS Dur : 118 ms QT Int : 392 ms P-R-T Axes : 065 -65 056 degrees QTc Int : 381 ms SINUS BRADYCARDIA LEFT AXIS DEVIATION INCOMPLETE RIGHT BUNDLE BRANCH BLOCK ABNORMAL ECG Confirmed by MD BRYANT, YOGI ([id number]) on 03/06/2018 11:32:12 AM Referred By: Confirmed By:YOGI HURTADO MD
[2018-03-06] MEDS: CHLORHEXIDINE GLUCONATE 118 ML MOUTHWASH MM SCH ×2 (14:17→22:08)
[2018-03-06] MEDS: AMOXICILLIN 500 MG CAPSULE (FP) PO SCH ×2 (14:32→22:07)
[2018-03-06] MEDS: THIAMINE HCL 100 MG TABLET (FP) PO SCH (22:07)
[2018-03-07] MEDS: AMOXICILLIN 500 MG CAPSULE (FP) PO SCH ×2 (05:14→14:14)
[2018-03-07] MEDS: chlordiazePOXIDE HCL 25 MG CAPSULE PO SCH ×2 (05:15→10:36)
[2018-03-07] MEDS: CHLORHEXIDINE GLUCONATE 118 ML MOUTHWASH MM SCH ×2 (05:15→14:15)
[2018-03-07] MEDS: PRENATAL VITAMINS W/ FOLIC ACID TABLET (FP) PO SCH (10:35)
[2018-03-07] MEDS: EMTRICITABINE/TENOFOV ALAFENAM (DESCOVY) TABLET PO SCH (10:36)
[2018-03-07] MEDS: DARUNAVIR 800 MG/COBICISTAT 150MG TABLET PO SCH (10:36)
--- NOTE | 2018-03-07 10:38 | PN ---
S CIWA - CIWA Score Nausea/Vomitin-Mild Nausea/No Vomiting Muscle Tremors: 4-Moderate,w/Arms Extend Anxiety: 3 Agitation: 3 Paroxysmal Sweats: 1-Minimal Palms Moist Orientation: 0-Oriented Tacttile Disturbances: 0-None Auditory Disturbances: 0-None Visual Disturbances: 0-None Headache: 0-None Present CIWA-Ar Total Score: 12 BHS Progress Note (SOAP) Subjective: sweat tremor restlessness irritable anxiety Objective: 03/07/18 10:42 Vital Signs Temperature 97.5 F L 03/07/18 09:16 Pulse Rate 54 L 03/07/18 09:16 Respiratory Rate 18 03/07/18 09:16 Blood Pressure 105/68 03/07/18 09:16 O2 Sat by Pulse Oximetry (%) Laboratory Last Values WBC 4.3 K/mm3 (4.0-10.0) 03/05/18 11:05 RBC 5.45 M/mm3 (4.00-5.60) 03/05/18 11:05 Hgb 12.8 GM/dL (11.7-16.9) 03/05/18 11:05 Hct 40.7 % (35.4-49) 03/05/18 11:05 MCV 74.7 fl (80-96) L 03/05/18 11:05 MCH 23.4 pg (25.7-33.7) L 03/05/18 11:05 MCHC 31.4 g/dl (32.0-35.9) L 03/05/18 11:05 RDW 15.1 % (11.9-15.9) 03/05/18 11:05 Plt Count 166 K/MM3 (134-434) 03/05/18 11:05 MPV 10.8 fl (7.5-11.1) 03/05/18 11:05 Sodium 141 mmol/L (136-145) 03/05/18 11:05 Potassium 4.1 mmol/L (3.5-5.1) 03/05/18 11:05 Chloride 111 mmol/L (98-107) H 03/05/18 11:05 Carbon Dioxide 24 mmol/L (21-32) 03/05/18 11:05 Anion Gap 6 (8-16) L 03/05/18 11:05 BUN 14 mg/dL (7-18) 03/05/18 11:05 Creatinine 1.1 mg/dL (0.7-1.3) 03/05/18 11:05 Creat Clearance w eGFR > 60 (>60) 03/05/18 11:05 Random Glucose 94 mg/dL (74-106) 03/05/18 11:05 Calcium 8.9 mg/dL (8.5-10.1) 03/05/18 11:05 Total Bilirubin 0.4 mg/dL (0.2-1.0) 03/05/18 11:05 AST 24 U/L (15-37) D 03/05/18 11:05 ALT 25 U/L (12-78) 03/05/18 11:05 Alkaline Phosphatase 58 U/L (45-117) 03/05/18 11:05 Total Protein 7.2 g/dl (6.4-8.2) 03/05/18 11:05 Albumin 3.6 g/dl (3.4-5.0) 03/05/18 11:05 Urine Color Yellow 03/05/18 16:00 Urine Appearance Clear 03/05/18 16:00 Urine pH 5.0 (5.0-8.0) 03/05/18 16:00 Ur Specific [place] 1.027 (1.001-1.035) 03/05/18 16:00 Urine Protein Negative (NEGATIVE) 03/05/18 16:00 Urine Glucose (UA) Negative (NEGATIVE) 03/05/18 16:00 Urine Ketones Negative (NEGATIVE) 03/05/18 16:00 Urine Blood Negative (NEGATIVE) 03/05/18 16:00 Urine Nitrite Negative (NEGATIVE) 03/05/18 16:00 Urine Bilirubin Negative (<2.0 mg/dL) 03/05/18 16:00 Urine Urobilinogen Negative mg/dL (0.2-1.0) 03/05/18 16:00 Ur Leukocyte Esterase Negative (NEGATIVE) 03/05/18 16:00 RPR Titer Nonreactive (NONREACTIVE) 03/05/18 11:05 lab noted Assessment: 03/07/18 10:43 withdrawal sx Plan: continue detox
[2018-03-07] MEDS ORDERED: COLLOIDAL OATMEAL 1 BAR EACH TP PRN (11:57)
[2018-03-07 15:33] VITALS: BP 113/61; PULSE 67; TEMP 97.7
--- NOTE | 2018-03-07 16:08 | DS ---
[facility] Detox Discharge Summary Admission Date: 03/05/18 Discharge Date: 03/07/18 - History Present History: Alcohol Dependence Additional Comments: 37 years old male admitted on 03/05/18 for alcohol withdrawal sx insists to terminate alcohol detox regimen patient wants to follow up with Dr. Keenan for medical mental and addiction issues patient stated that "I need a break" and feeling well rested alert oriented x 3 no acute distress coherent speech denies homocidal denies suicidal no self destructive behavior Pertinent Past History: encourage the patient follow up with infectious disease provider for medical mental and addiction issues health teaching on ART adherence - Physical Exam Results Vital Signs: Vital Signs Temperature 97.7 F 03/07/18 15:33 Pulse Rate 67 03/07/18 15:33 Respiratory Rate 18 03/07/18 15:33 Blood Pressure 113/61 03/07/18 15:33 O2 Sat by Pulse Oximetry (%) Pertinent Admission Physical Exam Findings: alcohol withdrawal sx Vital Signs Temperature 97.7 F 03/07/18 15:33 Pulse Rate 67 03/07/18 15:33 Respiratory Rate 18 03/07/18 15:33 Blood Pressure 113/61 03/07/18 15:33 O2 Sat by Pulse Oximetry (%) Laboratory Last Values WBC 4.3 K/mm3 (4.0-10.0) 03/05/18 11:05 RBC 5.45 M/mm3 (4.00-5.60) 03/05/18 11:05 Hgb 12.8 GM/dL (11.7-16.9) 03/05/18 11:05 Hct 40.7 % (35.4-49) 03/05/18 11:05 MCV 74.7 fl (80-96) L 03/05/18 11:05 MCH 23.4 pg (25.7-33.7) L 03/05/18 11:05 MCHC 31.4 g/dl (32.0-35.9) L 03/05/18 11:05 RDW 15.1 % (11.9-15.9) 03/05/18 11:05 Plt Count 166 K/MM3 (134-434) 03/05/18 11:05 MPV 10.8 fl (7.5-11.1) 03/05/18 11:05 Sodium 141 mmol/L (136-145) 03/05/18 11:05 Potassium 4.1 mmol/L (3.5-5.1) 03/05/18 11:05 Chloride 111 mmol/L (98-107) H 03/05/18 11:05 Carbon Dioxide 24 mmol/L (21-32) 03/05/18 11:05 Anion Gap 6 (8-16) L 03/05/18 11:05 BUN 14 mg/dL (7-18) 03/05/18 11:05 Creatinine 1.1 mg/dL (0.7-1.3) 03/05/18 11:05 Creat Clearance w eGFR > 60 (>60) 03/05/18 11:05 Random Glucose 94 mg/dL (74-106) 03/05/18 11:05 Calcium 8.9 mg/dL (8.5-10.1) 03/05/18 11:05 Total Bilirubin 0.4 mg/dL (0.2-1.0) 03/05/18 11:05 AST 24 U/L (15-37) D 03/05/18 11:05 ALT 25 U/L (12-78) 03/05/18 11:05 Alkaline Phosphatase 58 U/L (45-117) 03/05/18 11:05 Total Protein 7.2 g/dl (6.4-8.2) 03/05/18 11:05 Albumin 3.6 g/dl (3.4-5.0) 03/05/18 11:05 Urine Color Yellow 03/05/18 16:00 Urine Appearance Clear 03/05/18 16:00 Urine pH 5.0 (5.0-8.0) 03/05/18 16:00 Ur Specific [place] 1.027 (1.001-1.035) 03/05/18 16:00 Urine Protein Negative (NEGATIVE) 03/05/18 16:00 Urine Glucose (UA) Negative (NEGATIVE) 03/05/18 16:00 Urine Ketones Negative (NEGATIVE) 03/05/18 16:00 Urine Blood Negative (NEGATIVE) 03/05/18 16:00 Urine Nitrite Negative (NEGATIVE) 03/05/18 16:00 Urine Bilirubin Negative (<2.0 mg/dL) 03/05/18 16:00 Urine Urobilinogen Negative mg/dL (0.2-1.0) 03/05/18 16:00 Ur Leukocyte Esterase Negative (NEGATIVE) 03/05/18 16:00 RPR Titer Nonreactive (NONREACTIVE) 03/05/18 11:05 lab noted - Treatment Hospital Course: Detox Protocol Followed, Responded well Patient has Accepted a Rehab Referral to: Dr. Keenan - Medication Discharge Medications: Ambulatory Orders Emtricitabine/Tenofov Alafenam [Descovy 200-25 mg Tablet (Nf)] 1 each PO DAILY 08/09/17 Darunavir/Cobicistat [Prezcobix 800 mg-150 mg Tablet] 1 tab PO DAILY 03/05/18
[2018-03-07] MEDS ORDERED: chlordiazePOXIDE 5 MG CAPSULE PO SCH (17:00)
[2018-03-08] MEDS ORDERED: chlordiazePOXIDE HCL 10 MG CAPSULE PO SCH (17:00)
== END 2018-03-07 15:42 | disposition left against medical advice (07) | DRG 770 ==
LOC: YASAS 10:17 → Y6N 11:18
PROVIDERS: ADMIT Surgery; ATTEND Surgery
PROC: HZ2ZZZZ Detoxification Services for Substance Abuse Treatment (ICD-10-PCS; principal; 2018-03-05)
DX: F10.230 Alcohol dependence with withdrawal, uncomplicated (principal); F14.20 Cocaine dependence, uncomplicated; F12.20 Cannabis dependence, uncomplicated; F17.210 Nicotine dependence, cigarettes, uncomplicated; B20 Human immunodeficiency virus [HIV] disease; F32.9 Major depressive disorder, single episode, unspecified; F19.24 Other psychoactive substance dependence with psychoactive substance-induced mood disorder; G62.9 Polyneuropathy, unspecified; R63.4 Abnormal weight loss; Z68.21 Body mass index [BMI] 21.0-21.9, adult
CPT/HCPCS: 36415; 80053; 81003; 85027; 86593; 93005; 93010

== ENCOUNTER 2018-05-30 11:08 | Inpatient (IN) | payer OTHER ==
[2018-05-30 12:55] VITALS: BMI 20.5
--- NOTE | 2018-05-30 14:10 | HP ---
CIWA Score - CIWA Score Nausea/Vomitin-No Nausea/No Vomiting Muscle Tremors: 4-Moderate,w/Arms Extend Anxiety: 4-Mod. Anxious/Guarded Agitation: 4-Moderately Restless Paroxysmal Sweats: 3 Orientation: 0-Oriented Tacttile Disturbances: 0-None Auditory Disturbances: 0-None Visual Disturbances: 0-None Headache: 1-Very Mild CIWA-Ar Total Score: 16 Admission ROS BHS - HPI Chief Complaint: I am here to get help for my alcohol problem Allergies/Adverse Reactions: Allergies Allergy/AdvReac Type Severity Reaction Status Date / Time No Known Allergies Allergy Verified 05/30/18 13:46 History of Present Illness: pt is a 37yr old male with a history of alcohol dependence seeking detox for treatment. Exam Limitations: No Limitations - Ebola screening Have you traveled outside of the country in the last 21 days: No Have you had contact with anyone from an Ebola affected area: No Have you been sick,other than usual withdrawal symptoms: No Do you have a fever: No - Review of Systems Constitutional: Chills, Loss of Appetite, Unintentional Wgt. Loss EENT: reports: No Symptoms Reported Respiratory: reports: No Symptoms reported Cardiac: reports: No Symptoms Reported GI: reports: Poor Appetite : reports: No Symptoms Reported Musculoskeletal: reports: No Symptoms Reported Integumentary: reports: No Symptoms Reported Neuro: reports: Tremors Endocrine: reports: No Symptoms Reported, [place] Hematology: reports: No Symptoms Reported Psychiatric: reports: Judgement Intact, Mood/Affect Appropiate, Orientated x3, Agitated, Anxious Other Systems: Reviewed and Negative Patient History - Patient Medical History Hx Anemia: No Hx Asthma: No Hx Chronic Obstructive Pulmonary Disease (COPD): No Hx Cancer: No Hx Cardiac Disorders: No Hx Congestive Heart Failure: No Hx Hypertension: No Hx Hypercholesterolemia: No Hx Pacemaker: No HX Cerebrovascular Accident: No Hx Seizures: No Hx Dementia: No Hx Diabetes: No Hx Gastrointestinal Disorders: No Hx Liver Disease: No Hx Genitourinary Disorders: No Hx Sexually Transmitted Disorders: No Hx Renal Disease (ESRD): No Hx Thyroid Disease: No Hx Human Immunodeficiency Virus (HIV): Yes (SINCE JANUARY 2014; HX DX PCP PNEUMONIA AND ORAL THRUSH.) Hx Hepatitis C: No (denies) Hx Depression: No Hx Suicide Attempt: No (denies) Hx Bipolar Disorder: No Hx Schizophrenia: No - Patient Surgical History Past Surgical History: No Hx Neurologic Surgery: No Hx Cataract Extraction: No Hx Cardiac Surgery: No Hx Lung Surgery: No Hx Breast Surgery: No Hx Breast Biopsy: No Hx Abdominal Surgery: No Hx Appendectomy: No Hx Cholecystectomy: No Hx Genitourinary Surgery: No Hx Section: No Hx Orthopedic Surgery: No Other Surgical History: ORAL SX 02/03 Anesthesia Reaction: No - PPD History Previous Implant?: Yes Documented Results: Positive w/proof Date: 03/07/18 Results: 0 mm PPD to be Administered?: No - Reproductive History Patient is a Female of Child Bearing Age (11 -55 yrs old): No - Smoking Cessation Smoking history: Current every day smoker Have you smoked in the past 12 months: Yes Aproximately how many cigarettes per day: 10 Cigars Per Day: 0 Hx Chewing Tobacco Use: No Initiated information on smoking cessation: Yes 'Breaking Loose' booklet given: 05/30/18 - Substance & Tx. History Hx Alcohol Use: Yes Hx Substance Use: Yes Substance Use Type: Alcohol, Cocaine, Marijuana Hx Substance Use Treatment: Yes (last detox 02/2018 [facility]) - Substances Abused Crack Route: Smoking Frequency: 3-6 times per week Amount used: $20 Age of first use: 33 Date of Last Use: 05/29/18 Alcohol-vodka/beer Route: Oral Frequency: Daily Amount used: 1 pt./2 (16 oz.) Age of first use: 14 Date of Last Use: 05/29/18 Marijuana Route: Smoking Frequency: Daily Amount used: $10 Age of first use: 14 Date of Last Use: 05/30/18 Family Disease History - Family Disease History Family Disease History: CA: Mother (BREAST &KIDNEY-) Admission Physical Exam BHS - Vital Signs Vital Signs: Vital Signs - 24 hr 05/30/18 12:52 Temperature 98.8 F Pulse Rate 54 L Respiratory 18 Rate Blood Pressure 100/61 - Physical General Appearance: Yes: Appropriately Dressed, Mild Distress, Thin, Irritable, Anxious HEENTM: Yes: Normal Voice Respiratory: Yes: Lungs Clear, Normal Breath Sounds, No Respiratory Distress Neck: Yes: No masses,lesions,Nodules Breast: Yes: Within Normal Limits Cardiology: Yes: Regular Rhythm, Regular Rate, S1, S2 Abdominal: Yes: Normal Bowel Sounds Genitourinary: Yes: Within Normal Limits Back: Yes: Normal Inspection Musculoskeletal: Yes: full range of Motion Extremities: Yes: Normal Range of Motion, Tremors Neurological: Yes: Fully Oriented, Alert, Normal Response Integumentary: Yes: Normal Color Lymphatic: Yes: Within Normal Limits - Diagnostic (1) Alcohol dependence with uncomplicated withdrawal Current Visit: Yes Status: Chronic (2) Weight loss Current Visit: Yes Status: Chronic (3) Cannabis dependence Current Visit: Yes Status: Chronic (4) Cocaine dependence Current Visit: No Status: Chronic Qualifiers: Substance use status: uncomplicated (5) HIV (human immunodeficiency virus infection) Current Visit: Yes Status: Chronic (6) Nicotine dependence Current Visit: Yes Status: Chronic Qualifiers: Nicotine product type: cigarettes Substance use status: uncomplicated Qualified Code(s): F17.210 - Nicotine dependence, cigarettes, uncomplicated Cleared for Admission [facility] - Detox or Rehab [facility] Level of Care: Medically Managed Detox Regimen/Protocol: Librium [facility] Breath Alcohol Content Breath Alcohol Content: 0 Urine Drug Screen - Results Drug Screen Negative: No Urine Drug Screen Results: THC-Marijuana, CHERYL-Cocaine
[2018-05-30] MEDS ORDERED: IBUPROFEN 400 MG TABLET (FP) PO PRN (14:13)
[2018-05-30] MEDS ORDERED: MAGNESIUM HYDROX 2400MG/30ML ORAL SUSPENSION 30 ML CUP PO PRN (14:13)
[2018-05-30] MEDS ORDERED: ACETAMINOPHEN 325 MG TABLET (FP) PO PRN (14:13)
[2018-05-30] MEDS ORDERED: MAGNESIUM CITRATE 300 ML BOTTLE PO PRN (14:13)
[2018-05-30] MEDS ORDERED: LOPERAMIDE HCL 2 MG CAPSULE PO PRN (14:13)
[2018-05-30] MEDS ORDERED: MENTHOL/PHENOL 1 EACH UD MM PRN (14:13)
[2018-05-30] MEDS ORDERED: chlordiazePOXIDE HCL 25 MG CAPSULE PO PRN (14:13)
[2018-05-30] MEDS ORDERED: MAG HYDROX/AL HYDROX/SIMETH 30 ML UNIT-DOSE CUP PO PRN (14:13)
[2018-05-30] MEDS ORDERED: guaiFENesin/D-METHORPHAN HB 10 ML UNIT-DOSE CUPS PO PRN (14:13)
[2018-05-30] MEDS ORDERED: NICOTINE POLACRILEX 4 MG GUM BUC PRN (14:13)
[2018-05-30] MEDS ORDERED: hydrOXYzine PAMOATE 50 MG CAPSULE (FP) PO PRN (14:13)
[2018-05-30] MEDS ORDERED: P-EPHED 60MG/TRIPROLIDI 2.5MG TABLET PO PRN (14:13)
[2018-05-30] MEDS ORDERED: chlordiazePOXIDE HCL 25 MG CAPSULE PO ONE (14:45)
[2018-05-30 17:19] LABS: URINE APPEARANCE CLEAR; URINE BILIRUBIN NEGATIVE (<2.0 mg/dL); URINE COLOR YELLOW; URINE GLUCOSE (UA) NEGATIVE (NEGATIVE); URINE KETONE NEGATIVE (NEGATIVE); URINE LEUK ESTERASE NEGATIVE (NEGATIVE); URINE NITRITE NEGATIVE (NEGATIVE); URINE PROTEIN NEGATIVE (NEGATIVE)
[2018-05-30] MEDS: chlordiazePOXIDE HCL 25 MG CAPSULE PO SCH ×2 (17:38→22:25)
[2018-05-30] MEDS ORDERED: THIAMINE HCL 100 MG TABLET (FP) PO SCH (22:00)
[2018-05-30] MEDS ORDERED: MELATONIN 5 MG TABLETS PO PRN (22:00)
[2018-05-31] MEDS: chlordiazePOXIDE HCL 25 MG CAPSULE PO SCH ×2 (05:29→10:38)
[2018-05-31] MEDS ORDERED: EMTRICITABINE/TENOFOV ALAFENAM (DESCOVY) TABLET PO SCH (08:00)
[2018-05-31] MEDS ORDERED: DARUNAVIR 800 MG/COBICISTAT 150MG TABLET PO SCH (08:00)
[2018-05-31] MEDS ORDERED: NICOTINE 21 MG/24 HOURS TOPICAL PATCH TD SCH (10:00)
[2018-05-31] MEDS ORDERED: PRENATAL VITAMINS W/ FOLIC ACID TABLET (FP) PO SCH (10:00)
[2018-05-31 10:11] LABS: HEMATOCRIT 41.7 % (35.4-49); MCH 23.1 pg (25.7-33.7); MCHC 31.1 g/dl (32.0-35.9); MEAN CELL VOLUME 74.3 fl (80-96); MEAN PLT VOLUME 10.9 fl (7.5-11.1); PLATELET COUNT 160 K/MM3 (134-434); RBC 5.62 M/mm3 (4.00-5.60); RDW 15.7 % (11.9-15.9); WHITE BLOOD COUNT 3.9 K/mm3 (4.0-10.0)
[2018-05-31 10:54] LABS: ALBUMIN 3.8 g/dl (3.4-5.0); ALK PHOS 61 U/L (45-117); ANION GAP 8 MMOL/L (8-16); BILIRUBIN,TOTAL 0.3 mg/dL (0.2-1); BLOOD UREA NITROGEN 12 mg/dL (7-18); CALCIUM 9.3 mg/dL (8.5-10.1); CHLORIDE 109 mmol/L (98-107); CO2 24 mmol/L (21-32); CREATININE 0.9 mg/dL (0.55-1.3); GLUCOSE,RANDOM 84 mg/dL (74-106); POTASSIUM 4.4 mmol/L (3.5-5.1); SGOT/AST 23 U/L (15-37); SGPT/ALT 31 U/L (13-61); SODIUM 140 mmol/L (136-145); TOT PROT 7.7 g/dl (6.4-8.2)
--- NOTE | 2018-05-31 11:05 | PN ---
[facility] CIWA - CIWA Score Nausea/Vomitin-No Nausea/No Vomiting Muscle Tremors: 1-None Visible, but [place] Anxiety: 4-Mod. Anxious/Guarded Agitation: 4-Moderately Restless Paroxysmal Sweats: No Perspiration Orientation: 0-Oriented Tacttile Disturbances: 0-None Auditory Disturbances: 0-None Visual Disturbances: 0-None Headache: 2-Mild CIWA-Ar Total Score: 11 BHS Progress Note (SOAP) Subjective: PATIENT ANXIOUS/IRRITABLE/RESTLESS. C/O MILD HEADACHE. Objective: 05/31/18 11:03 Laboratory Tests 05/30/18 05/31/18 05/31/18 15:31 06:00 06:00 WBC 3.9 L RBC 5.62 H Hgb 13.0 Hct 41.7 MCV 74.3 L MCH 23.1 L MCHC 31.1 L RDW 15.7 Plt Count 160 MPV 10.9 Sodium 140 Potassium 4.4 Chloride 109 H Carbon Dioxide 24 Anion Gap 8 BUN 12 Creatinine 0.9 Creat Clearance w eGFR > 60 Random Glucose 84 Calcium 9.3 Total Bilirubin 0.3 AST 23 ALT 31 Alkaline Phosphatase 61 Total Protein 7.7 Albumin 3.8 Urine Color Yellow Urine Appearance Clear Urine pH 5.0 Ur Specific [place] 1.030 Urine Protein Negative Urine Glucose (UA) Negative Urine Ketones Negative Urine Blood Negative Urine Nitrite Negative Urine Bilirubin Negative Urine Urobilinogen 2.0 Ur Leukocyte Esterase Negative Vital Signs Temperature 97.2 F L 05/31/18 10:13 Pulse Rate 68 05/31/18 10:13 Respiratory Rate 18 05/31/18 10:13 Blood Pressure 101/69 05/31/18 10:13 O2 Sat by Pulse Oximetry (%) SKIN WARM AND DRY ALERT AND ORIENTED X 3 EXT FULL ROM ANXIOUS AND RESTLESS Assessment: 05/31/18 11:04 WITHDRAWAL SYNDROME Plan: CONTINUE DETOX ENCOURAGE ORAL FLUIDS CONTINUE VISTARIL PRN CONTINUE TO MONITOR
--- NOTE | 2018-05-31 12:14 | EKG ---
Test Reason : Blood Pressure : / mmHG Vent. Rate : 040 BPM Atrial Rate : 040 BPM P-R Int : 176 ms QRS Dur : 120 ms QT Int : 426 ms P-R-T Axes : 027 -11 049 degrees QTc Int : 347 ms MARKED SINUS BRADYCARDIA RIGHT BUNDLE BRANCH BLOCK ABNORMAL ECG WHEN COMPARED WITH ECG OF 05-MAR-2018 11:55, NO SIGNIFICANT CHANGE WAS FOUND Confirmed by RANDAL KELLEY MD ([id number]) on 05/31/2018 12:13:38 PM Referred By: Confirmed By:RANDAL KELLEY MD
[2018-05-31 13:36] VITALS: BP 99/61; PULSE 72; TEMP 97.7
--- NOTE | 2018-05-31 16:41 | PN ---
[facility] Progress Note Note: NOTIFIED BY RN THAT PATIENT REQUESTED TO SIGN OUT AMA. PATIENT ENCOURAGED TO COMPLETE DETOX BUT REFUSED TO STAY. PATIENT DENIES SI/HI. CLINICALLY STABLE. PATIENT ADVISED TO GO TO ER IF HE HAS WITHDRAWAL SYMPTOMS AND TO ATTEND GROUP MEETINGS TO PREVENT RELAPSE.
--- NOTE | 2018-05-31 16:42 | DS ---
[facility] Detox Discharge Summary Admission Date: 05/30/18 - History Present History: Alcohol Dependence - Physical Exam Results Vital Signs: Vital Signs Temperature 97.7 F 05/31/18 13:35 Pulse Rate 72 05/31/18 13:35 Respiratory Rate 18 05/31/18 13:35 Blood Pressure 99/61 05/31/18 13:35 O2 Sat by Pulse Oximetry (%) - Medication Discharge Medications: Ambulatory Orders Emtricitabine/Tenofov Alafenam [Descovy 200-25 mg Tablet (Nf)] 1 each PO DAILY 08/09/17 Darunavir/Cobicistat [Prezcobix 800 mg-150 mg Tablet] 1 tab PO DAILY 03/05/18 - Diagnosis (1) Alcohol dependence with uncomplicated withdrawal Current Visit: Yes Status: Chronic - AMA Did Patient Leave Against Medical Advice: Yes
[2018-05-31] MEDS ORDERED: chlordiazePOXIDE HCL 25 MG CAPSULE PO SCH (17:00)
[2018-06-01] MEDS ORDERED: chlordiazePOXIDE 5 MG CAPSULE PO SCH (17:00)
[2018-06-02] MEDS ORDERED: chlordiazePOXIDE HCL 10 MG CAPSULE PO SCH (17:00)
== END 2018-05-31 17:00 | disposition left against medical advice (07) | DRG 770 ==
LOC: YASAS 11:08 → Y3N 14:08
PROC: HZ2ZZZZ Detoxification Services for Substance Abuse Treatment (ICD-10-PCS; principal; 2018-05-30)
DX: F10.230 Alcohol dependence with withdrawal, uncomplicated (principal); F14.20 Cocaine dependence, uncomplicated; F12.20 Cannabis dependence, uncomplicated; F17.210 Nicotine dependence, cigarettes, uncomplicated; B20 Human immunodeficiency virus [HIV] disease; Z87.898 Personal history of other specified conditions
CPT/HCPCS: 36415; 80053; 81003; 85027; 86593; 93005; 93010

== ENCOUNTER 2018-10-16 11:58 | Inpatient (IN) | payer OTHER ==
[2018-10-16 14:11] VITALS: BMI 21.0
--- NOTE | 2018-10-16 14:36 | HP ---
CIWA Score Nausea/Vomitin-No Nausea/No Vomiting Muscle Tremors: 2 Anxiety: 3 Agitation: 1-Slight > Activity Paroxysmal Sweats: 2 Orientation: 0-Oriented Tacttile Disturbances: 1-Very Mild Itch/Numbness Auditory Disturbances: 0-None Visual Disturbances: 0-None Headache: 3-Moderate CIWA-Ar Total Score: 12 - Admission Criteria [facility] Guidelines: Admission for Medically Managed Detox: Requires at least one of the followin. CIWA greater than 12 2. Seizures within the past 24 hours 3. Delirium tremens within the past 24 hours 4. Hallucinations within the past 24 hours 5. Acute intervention needed for co occurring medical disorder 6. Acute intervention needed for co occurring psychiatric disorder 7. Severe withdrawal that cannot be handled at a lower level of care (continued vomiting, continued diarrhea, abnormal vital signs) requiring intravenous medication and/or fluids 8. Patient presents the following: CIWA greater than 12 Admission Criteria Met: Admission criteria met Admission ROS [facility] Chief Complaint: " I have shakes" Allergies/Adverse Reactions: Allergies Allergy/AdvReac Type Severity Reaction Status Date / Time No Known Allergies Allergy Verified 05/30/18 13:46 History of Present Illness: 38 yo male with hx of nicotine, marijuana and alcohol dependence is here seeking alcohol detox d/t withdrawal symptoms. Last detox [facility] May 2018. PMHX: HVI+. Denies psychiatric history. Denies suicidal / homicidal ideation Exam Limitations: No Limitations - Ebola screening Have you traveled outside of the country in the last 21 days: No Have you had contact with anyone from an Ebola affected area: No Have you been sick,other than usual withdrawal symptoms: No - Review of Systems Constitutional: Loss of Appetite, Changes in sleep, Unintentional Wgt. Loss ( 8lb in past month) EENT: reports: No Symptoms Reported Respiratory: reports: No Symptoms reported Cardiac: reports: No Symptoms Reported GI: reports: Poor Appetite : reports: No Symptoms Reported Musculoskeletal: reports: No Symptoms Reported Integumentary: reports: No Symptoms Reported Neuro: reports: Headache Endocrine: reports: Increased Thirst Hematology: reports: No Symptoms Reported Psychiatric: reports: Orientated x3, Anxious Other Systems: Reviewed and Negative Patient History - Patient Medical History Hx Anemia: No Hx Asthma: No Hx Chronic Obstructive Pulmonary Disease (COPD): No Hx Cancer: No Hx Cardiac Disorders: No Hx Congestive Heart Failure: No Hx Hypertension: No Hx Hypercholesterolemia: No Hx Pacemaker: No HX Cerebrovascular Accident: No Hx Seizures: No Hx Dementia: No Hx Diabetes: No Hx Gastrointestinal Disorders: No Hx Liver Disease: No Hx Genitourinary Disorders: No Hx Sexually Transmitted Disorders: No Hx Renal Disease (ESRD): No Hx Thyroid Disease: No Hx Human Immunodeficiency Virus (HIV): Yes (SINCE JANUARY 2014; HX DX PCP PNEUMONIA AND ORAL THRUSH.) Hx Hepatitis C: No (denies) Hx Depression: No Hx Suicide Attempt: No (denies) Hx Bipolar Disorder: No Hx Schizophrenia: No - Patient Surgical History Past Surgical History: No Hx Neurologic Surgery: No Hx Cataract Extraction: No Hx Cardiac Surgery: No Hx Lung Surgery: No Hx Breast Surgery: No Hx Breast Biopsy: No Hx Abdominal Surgery: No Hx Appendectomy: No Hx Cholecystectomy: No Hx Genitourinary Surgery: No Hx Section: No Hx Orthopedic Surgery: No Other Surgical History: ORAL SX 02/03 Anesthesia Reaction: No - PPD History Date: 03/07/18 Results: 0 mm - Smoking Cessation Smoking history: Current every day smoker Have you smoked in the past 12 months: Yes Aproximately how many cigarettes per day: 10 Cigars Per Day: 0 Hx Chewing Tobacco Use: No Initiated information on smoking cessation: Yes 'Breaking Loose' booklet given: 10/16/18 - Substance & Tx. History Hx Alcohol Use: Yes Hx Substance Use: Yes Substance Use Type: Alcohol, Cocaine, Marijuana Hx Substance Use Treatment: Yes (Last detox [facility] May 2018. ) - Substances Abused alcohol Route: Oral Frequency: Daily Amount used: 1 pint Age of first use: 13 Date of Last Use: 10/16/18 Cocaine Route: Inhalation Frequency: Daily Amount used: $10 Age of first use: 28 Date of Last Use: 10/16/18 Marijuana/Hashish Route: Smoking Frequency: Daily Amount used: $5 Age of first use: 13 Date of Last Use: 10/16/18 Family Disease History - Family Disease History Family Disease History: CA: Mother (BREAST &KIDNEY-) Admission Physical Exam BHS - Vital Signs Vital Signs: Vital Signs - 24 hr 10/16/18 14:08 Temperature 97.6 F Pulse Rate 62 Respiratory 20 Rate Blood Pressure 102/64 - Physical General Appearance: Yes: Appropriately Dressed, Mild Distress, Thin, Anxious HEENTM: Yes: EOMI, Hearing grossly Normal, Normal ENT Inspection, Normocephalic , Normal Voice, [place], Pharynx Normal, Tm's normal Respiratory: Yes: Chest Non-Tender, Lungs Clear, Normal Breath Sounds, No Respiratory Distress, No Accessory Muscle Use Neck: Yes: Within Normal Limits Breast: Yes: Breast Exam Deferred Cardiology: Yes: Regular Rhythm, Regular Rate Abdominal: Yes: Within Normal Limits Genitourinary: Yes: Within Normal Limits Back: Yes: Normal Inspection Musculoskeletal: Yes: full range of Motion, Gait Steady, Pelvis Stable Extremities: Yes: Normal Capillary Refill, Normal Inspection, Normal Range of Motion, Non-Tender Neurological: Yes: inspector casing II-XII NML intact, Fully Oriented, Alert, Motor Strength 5/5, Depressed Affect Integumentary: Yes: Normal Color, Warm, Moist Lymphatic: Yes: Within Normal Limits - Diagnostic (1) Alcohol dependence with uncomplicated withdrawal Current Visit: Yes Status: Chronic (2) Cannabis dependence Current Visit: Yes Status: Chronic (3) HIV (human immunodeficiency virus infection) Current Visit: Yes Status: Chronic Qualifiers: HIV symptom status: unspecified Qualified Code(s): B20 - Human immunodeficiency virus [HIV] disease (4) Nicotine dependence Current Visit: Yes Status: Chronic Qualifiers: Nicotine product type: cigarettes Substance use status: uncomplicated Qualified Code(s): F17.210 - Nicotine dependence, cigarettes, uncomplicated (5) Weight loss Current Visit: Yes Status: Chronic (6) Cocaine dependence Current Visit: No Status: Chronic Qualifiers: Substance use status: uncomplicated Qualified Code(s): F14.20 - Cocaine dependence, uncomplicated Cleared for Admission [facility] - Detox or Rehab [facility] Level of Care: Medically Managed Detox Regimen/Protocol: Librium [facility] Breath Alcohol Content Breath Alcohol Content: 0 Urine Drug Screen - Results Drug Screen Negative: No Urine Drug Screen Results: THC-Marijuana, CHERYL-Cocaine Inpatient Rehab Admission - Rehab Decision to Admit Inpatient rehab admission?: No
[2018-10-16] MEDS ORDERED: MAGNESIUM HYDROX 2400MG/30ML ORAL SUSPENSION 30 ML CUP PO PRN (14:39)
[2018-10-16] MEDS ORDERED: chlordiazePOXIDE HCL 25 MG CAPSULE PO PRN (14:39)
[2018-10-16] MEDS ORDERED: LOPERAMIDE HCL 2 MG CAPSULE PO PRN (14:39)
[2018-10-16] MEDS ORDERED: MAGNESIUM CITRATE 300 ML BOTTLE PO PRN (14:39)
[2018-10-16] MEDS ORDERED: guaiFENesin/D-METHORPHAN HB 10 ML UNIT-DOSE CUPS PO PRN (14:39)
[2018-10-16] MEDS ORDERED: P-EPHED 60MG/TRIPROLIDI 2.5MG TABLET PO PRN (14:39)
[2018-10-16] MEDS ORDERED: MAG HYDROX/AL HYDROX/SIMETH 30 ML UNIT-DOSE CUP PO PRN (14:39)
[2018-10-16] MEDS ORDERED: ACETAMINOPHEN 325 MG TABLET (FP) PO PRN (14:39)
[2018-10-16] MEDS ORDERED: MENTHOL/PHENOL 1 EACH UD MM PRN (14:39)
[2018-10-16] MEDS ORDERED: IBUPROFEN 400 MG TABLET (FP) PO PRN (14:39)
[2018-10-16] MEDS ORDERED: NICOTINE POLACRILEX 2 MG GUM BUC PRN (16:07)
[2018-10-16] MEDS ORDERED: MELATONIN 5 MG TABLETS PO PRN (22:00)
[2018-10-16] MEDS: THIAMINE HCL 100 MG TABLET (FP) PO SCH (22:21)
[2018-10-16] MEDS: chlordiazePOXIDE HCL 25 MG CAPSULE PO SCH (22:21)
[2018-10-17 01:56] LABS: URINE APPEARANCE CLEAR; URINE BILIRUBIN NEGATIVE (<2.0 mg/dL); URINE COLOR YELLOW; URINE GLUCOSE (UA) NEGATIVE (NEGATIVE); URINE KETONE NEGATIVE (NEGATIVE); URINE LEUK ESTERASE NEGATIVE (NEGATIVE); URINE NITRITE NEGATIVE (NEGATIVE); URINE PROTEIN NEGATIVE (NEGATIVE); URINE UROBILINOGEN 4.0 E.U/dl mg/dL (0.2-1.0)
[2018-10-17] MEDS: chlordiazePOXIDE HCL 25 MG CAPSULE PO SCH ×4 (06:12→22:39)
[2018-10-17 10:03] LABS: HEMATOCRIT 42.3 % (35.4-49); HEMOGLOBIN 13.8 GM/dL (11.7-16.9); MCH 24.3 pg (25.7-33.7); MCHC 32.7 g/dl (32.0-35.9); MEAN CELL VOLUME 74.5 fl (80-96); MEAN PLT VOLUME 11.5 fl (7.5-11.1); PLATELET COUNT 157 K/MM3 (134-434); RBC 5.68 M/mm3 (4.00-5.60); RDW 15.5 % (11.9-15.9); WHITE BLOOD COUNT 3.5 K/mm3 (4.0-10.0)
[2018-10-17 10:11] LABS: ALBUMIN 3.7 g/dl (3.4-5.0); ALK PHOS 60 U/L (45-117); ANION GAP 7 MMOL/L (8-16); BILIRUBIN,TOTAL 0.3 mg/dL (0.2-1); BLOOD UREA NITROGEN 14 mg/dL (7-18); CALCIUM 8.6 mg/dL (8.5-10.1); CHLORIDE 110 mmol/L (98-107); CO2 24 mmol/L (21-32); CREATININE 1.1 mg/dL (0.55-1.3); GLUCOSE,RANDOM 136 mg/dL (74-106); POTASSIUM 4.4 mmol/L (3.5-5.1); SGOT/AST 17 U/L (15-37); SGPT/ALT 21 U/L (13-61); SODIUM 140 mmol/L (136-145); TOT PROT 7.2 g/dl (6.4-8.2)
[2018-10-17] MEDS: PRENATAL VITAMINS W/ FOLIC ACID TABLET (FP) PO SCH (10:31)
[2018-10-17] MEDS: NICOTINE 14 MG/24 HOURS TOPICAL PATCH TD SCH (10:32)
[2018-10-17] MEDS: DARUNAVIR 800 MG/COBICISTAT 150MG TABLET PO SCH (12:34)
--- NOTE | 2018-10-17 15:53 | PN ---
[facility] CIWA - CIWA Score Nausea/Vomitin-No Nausea/No Vomiting Muscle Tremors: None Anxiety: 3 Agitation: 0-Normal Activity Paroxysmal Sweats: 2 Orientation: 0-Oriented Tacttile Disturbances: 2-Mild Itch/Numbness/Burn Auditory Disturbances: 1-Very Mild Visual Disturbances: 3-Moderate Sensitivity Headache: 0-None Present CIWA-Ar Total Score: 11 S Progress Note (SOAP) Subjective: Fatigue, Anxious, Sweating. Objective: PATIENT A & O X 3. IN NO ACUTE DISTRESS. 10/17/18 15:54 Vital Signs Temperature 97.7 F 10/17/18 13:11 Pulse Rate 71 10/17/18 13:11 Respiratory Rate 16 10/17/18 13:11 Blood Pressure 108/69 10/17/18 13:11 O2 Sat by Pulse Oximetry (%) Laboratory Tests 10/16/18 10/17/18 10/17/18 23:18 05:45 05:45 WBC 3.5 L RBC 5.68 H Hgb 13.8 Hct 42.3 MCV 74.5 L MCH 24.3 L MCHC 32.7 RDW 15.5 Plt Count 157 MPV 11.5 H Sodium 140 Potassium 4.4 Chloride 110 H Carbon Dioxide 24 Anion Gap 7 L BUN 14 Creatinine 1.1 Creat Clearance w eGFR > 60 Random Glucose 136 H Calcium 8.6 Total Bilirubin 0.3 AST 17 ALT 21 Alkaline Phosphatase 60 Total Protein 7.2 Albumin 3.7 Urine Color Yellow Urine Appearance Clear Urine pH 6.0 Ur Specific [place] 1.028 Urine Protein Negative Urine Glucose (UA) Negative Urine Ketones Negative Urine Blood Negative Urine Nitrite Negative Urine Bilirubin Negative Urine Urobilinogen 4.0 e.u/dl Ur Leukocyte Esterase Negative RPR Titer 10/17/18 05:45 WBC RBC Hgb Hct MCV MCH MCHC RDW Plt Count MPV Sodium Potassium Chloride Carbon Dioxide Anion Gap BUN Creatinine Creat Clearance w eGFR Random Glucose Calcium Total Bilirubin AST ALT Alkaline Phosphatase Total Protein Albumin Urine Color Urine Appearance Urine pH Ur Specific [place] Urine Protein Urine Glucose (UA) Urine Ketones Urine Blood Urine Nitrite Urine Bilirubin Urine Urobilinogen Ur Leukocyte Esterase RPR Titer Nonreactive LABS NOTED. Assessment: 10/17/18 15:54 WITHDRAWAL SYMPTOMS. LEUKOPENIA. 10/17/18 15:55 Plan: CONTINUE DETOX. INCREASE DAILY PO FLUID INTAKE. BGM ACBK FOR ELEVATED ADMISSION GLUCOSE LEVEL.
[2018-10-17] MEDS: THIAMINE HCL 100 MG TABLET (FP) PO SCH (22:39)
[2018-10-18] MEDS: chlordiazePOXIDE HCL 25 MG CAPSULE PO SCH ×2 (06:19→12:14)
[2018-10-18 09:31] VITALS: BP 109/72; PULSE 58; TEMP 97.2
[2018-10-18] MEDS ORDERED: EMTRICITABINE/TENOFOV ALAFENAM (DESCOVY) TABLET PO SCH (10:00)
[2018-10-18] MEDS: DARUNAVIR 800 MG/COBICISTAT 150MG TABLET PO SCH (10:26)
[2018-10-18] MEDS: PRENATAL VITAMINS W/ FOLIC ACID TABLET (FP) PO SCH (10:26)
[2018-10-18] MEDS: NICOTINE 14 MG/24 HOURS TOPICAL PATCH TD SCH (12:14)
--- NOTE | 2018-10-18 15:04 | PN ---
[facility] CIWA - CIWA Score Nausea/Vomitin-No Nausea/No Vomiting Muscle Tremors: None Anxiety: 3 Agitation: 2 Paroxysmal Sweats: 3 Orientation: 0-Oriented Tacttile Disturbances: 1-Very Mild Itch/Numbness Auditory Disturbances: 0-None Visual Disturbances: 1-Very Mild Sensitivity Headache: 0-None Present CIWA-Ar Total Score: 10 S Progress Note (SOAP) Subjective: Anxious, Sweating. Objective: PATIENT A & O X 3, OBSERVED AMBULATING ON UNIT. IN NO ACUTE DISTRESS. 10/18/18 15:01 Vital Signs Temperature 97.2 F L 10/18/18 09:30 Pulse Rate 58 L 10/18/18 09:30 Respiratory Rate 18 10/18/18 09:30 Blood Pressure 109/72 10/18/18 09:30 O2 Sat by Pulse Oximetry (%) Laboratory Tests 10/16/18 10/17/18 10/17/18 23:18 05:45 05:45 WBC 3.5 L RBC 5.68 H Hgb 13.8 Hct 42.3 MCV 74.5 L MCH 24.3 L MCHC 32.7 RDW 15.5 Plt Count 157 MPV 11.5 H Sodium 140 Potassium 4.4 Chloride 110 H Carbon Dioxide 24 Anion Gap 7 L BUN 14 Creatinine 1.1 Creat Clearance w eGFR > 60 POC Glucometer Random Glucose 136 H Calcium 8.6 Total Bilirubin 0.3 AST 17 ALT 21 Alkaline Phosphatase 60 Total Protein 7.2 Albumin 3.7 Urine Color Yellow Urine Appearance Clear Urine pH 6.0 Ur Specific [place] 1.028 Urine Protein Negative Urine Glucose (UA) Negative Urine Ketones Negative Urine Blood Negative Urine Nitrite Negative Urine Bilirubin Negative Urine Urobilinogen 4.0 e.u/dl Ur Leukocyte Esterase Negative RPR Titer 10/17/18 10/18/18 05:45 06:21 WBC RBC Hgb Hct MCV MCH MCHC RDW Plt Count MPV Sodium Potassium Chloride Carbon Dioxide Anion Gap BUN Creatinine Creat Clearance w eGFR POC Glucometer 78 Random Glucose Calcium Total Bilirubin AST ALT Alkaline Phosphatase Total Protein Albumin Urine Color Urine Appearance Urine pH Ur Specific [place] Urine Protein Urine Glucose (UA) Urine Ketones Urine Blood Urine Nitrite Urine Bilirubin Urine Urobilinogen Ur Leukocyte Esterase RPR Titer Nonreactive LABS NOTED. PATIENT HAS HAD LOW WBC LEVELS ON PREVIOUS ADMISSIONS. 10/18/18 15:02 Assessment: 10/18/18 15:02 WITHDRAWAL SYMPTOMS. LEUKOPENIA. 10/18/18 15:03 Plan: CONTINUE DETOX.
--- NOTE | 2018-10-18 15:08 | DS ---
[facility] Detox Discharge Summary Admission Date: 10/16/18 Discharge Date: 10/18/18 - History Present History: Alcohol Dependence, Cannabis Dependence, Cocaine Dependence Additional Comments: PATIENT REPORTS THAT HE HAS "PERSONAL OBLIGATIONS TO DEAL WITH" AND THAT HE DOES NOT WISH TO REMAIN TO COMPLETE DETOX REGIMEN. RISKS OF LEAVING DETOX UNIT AGAINST MEDICAL ADVICE AND PRIOR TO COMPLETION OF DETOX REGIMEN EXPLAINED TO PATIENT. PATIENT ADVISED TO GO IMMEDIATELY TO NEAREST ER SHOULD ANY INTOLERABLE DETOX SYMPTOMS DEVELOP AT ANY TIME. PATIENT VERBALIZED UNDERSTANDING OF ALL INFORMATION / RECOMMENDATIONS PRESENTED TO HIM PRIOR TO DEPARTURE FROM DETOX UNIT. PATIENT LEFT DETOX UNIT IN STABLE MEDICAL CONDITION. Pertinent Past History: Nicotine Dependence, H.I.V., Weight Loss, Leukopenia. - Physical Exam Results Vital Signs: Vital Signs Temperature 97.2 F L 10/18/18 09:30 Pulse Rate 58 L 10/18/18 09:30 Respiratory Rate 18 10/18/18 09:30 Blood Pressure 109/72 10/18/18 09:30 O2 Sat by Pulse Oximetry (%) Pertinent Admission Physical Exam Findings: WITHDRAWAL SYMPTOMS. Vital Signs Temperature 97.2 F L 10/18/18 09:30 Pulse Rate 58 L 10/18/18 09:30 Respiratory Rate 18 10/18/18 09:30 Blood Pressure 109/72 10/18/18 09:30 O2 Sat by Pulse Oximetry (%) Laboratory Tests 10/16/18 10/17/18 10/17/18 23:18 05:45 05:45 WBC 3.5 L RBC 5.68 H Hgb 13.8 Hct 42.3 MCV 74.5 L MCH 24.3 L MCHC 32.7 RDW 15.5 Plt Count 157 MPV 11.5 H Sodium 140 Potassium 4.4 Chloride 110 H Carbon Dioxide 24 Anion Gap 7 L BUN 14 Creatinine 1.1 Creat Clearance w eGFR > 60 POC Glucometer Random Glucose 136 H Calcium 8.6 Total Bilirubin 0.3 AST 17 ALT 21 Alkaline Phosphatase 60 Total Protein 7.2 Albumin 3.7 Urine Color Yellow Urine Appearance Clear Urine pH 6.0 Ur Specific [place] 1.028 Urine Protein Negative Urine Glucose (UA) Negative Urine Ketones Negative Urine Blood Negative Urine Nitrite Negative Urine Bilirubin Negative Urine Urobilinogen 4.0 e.u/dl Ur Leukocyte Esterase Negative RPR Titer 10/17/18 10/18/18 05:45 06:21 WBC RBC Hgb Hct MCV MCH MCHC RDW Plt Count MPV Sodium Potassium Chloride Carbon Dioxide Anion Gap BUN Creatinine Creat Clearance w eGFR POC Glucometer 78 Random Glucose Calcium Total Bilirubin AST ALT Alkaline Phosphatase Total Protein Albumin Urine Color Urine Appearance Urine pH Ur Specific [place] Urine Protein Urine Glucose (UA) Urine Ketones Urine Blood Urine Nitrite Urine Bilirubin Urine Urobilinogen Ur Leukocyte Esterase RPR Titer Nonreactive LABS NOTED. - Treatment Hospital Course: Detox Protocol Followed, Detoxed Safely - Medication Discharge Medications: Ambulatory Orders Emtricitabine/Tenofov Alafenam [Descovy 200-25 mg Tablet (Nf)] 1 each PO DAILY 08/09/17 Darunavir/Cobicistat [Prezcobix 800 mg-150 mg Tablet] 1 tab PO DAILY 03/05/18 - Diagnosis (1) Leukopenia Status: Acute Qualifiers: Leukopenia type: unspecified Qualified Code(s): D72.819 - Decreased white blood cell count, unspecified (2) Alcohol dependence with uncomplicated withdrawal Status: Acute (3) Cannabis dependence Status: Chronic (4) Cocaine dependence Status: Chronic Qualifiers: Substance use status: uncomplicated Qualified Code(s): F14.20 - Cocaine dependence, uncomplicated (5) HIV (human immunodeficiency virus infection) Status: Chronic Qualifiers: HIV symptom status: unspecified Qualified Code(s): B20 - Human immunodeficiency virus [HIV] disease (6) Nicotine dependence Status: Chronic Qualifiers: Nicotine product type: cigarettes Substance use status: uncomplicated Qualified Code(s): F17.210 - Nicotine dependence, cigarettes, uncomplicated (7) Weight loss Status: Chronic - AMA Did Patient Leave Against Medical Advice: Yes (PT. HAS PERSONAL OBLIGATIONS AND DOES NOT WISH TO REMAIN TO COMPLETE DETOX.)
[2018-10-18] MEDS ORDERED: chlordiazePOXIDE 5 MG CAPSULE PO SCH (23:00)
[2018-10-19] MEDS ORDERED: chlordiazePOXIDE HCL 10 MG CAPSULE PO SCH (23:00)
== END 2018-10-18 12:09 | disposition left against medical advice (07) | DRG 770 ==
LOC: YASAS 11:58 → Y6N 17:10
PROVIDERS: ADMIT Surgery; ATTEND Surgery
PROC: HZ2ZZZZ Detoxification Services for Substance Abuse Treatment (ICD-10-PCS; principal; 2018-10-16)
DX: F10.230 Alcohol dependence with withdrawal, uncomplicated (principal); F14.20 Cocaine dependence, uncomplicated; F12.20 Cannabis dependence, uncomplicated; F17.210 Nicotine dependence, cigarettes, uncomplicated; B20 Human immunodeficiency virus [HIV] disease; D72.819 Decreased white blood cell count, unspecified; R63.4 Abnormal weight loss; Z68.21 Body mass index [BMI] 21.0-21.9, adult
CPT/HCPCS: 36415; 80053; 81003; 82962; 85027; 86593

== ENCOUNTER 2019-03-19 16:07 | Inpatient (IN) | payer OTHER ==
[2019-03-19 20:18] VITALS: BMI 20.5
--- NOTE | 2019-03-19 22:36 | HP ---
CIWA Score Nausea/Vomitin Muscle Tremors: 4-Moderate,w/Arms Extend Anxiety: 4-Mod. Anxious/Guarded Agitation: 3 Paroxysmal Sweats: 2 Orientation: 1-Uncertain about Date Tacttile Disturbances: 0-None Auditory Disturbances: 0-None Visual Disturbances: 0-None Headache: 0-None Present CIWA-Ar Total Score: 16 - Admission Criteria OASAS Guidelines: Admission for Medically Managed Detox: Requires at least one of the followin. CIWA greater than 12 2. Seizures within the past 24 hours 3. Delirium tremens within the past 24 hours 4. Hallucinations within the past 24 hours 5. Acute intervention needed for co occurring medical disorder 6. Acute intervention needed for co occurring psychiatric disorder 7. Severe withdrawal that cannot be handled at a lower level of care (continued vomiting, continued diarrhea, abnormal vital signs) requiring intravenous medication and/or fluids 8. Admission ROS [facility] Chief Complaint: Alcohol withdrawal symptoms Allergies/Adverse Reactions: Allergies Allergy/AdvReac Type Severity Reaction Status Date / Time No Known Allergies Allergy Verified 03/19/19 20:12 History of Present Illness: 38 years old male with a long history of alcohol dependence is seeking admission to detox. Patient has been in detox multiple times and reports insignificant period of sobriety (patient reports 2 days of sobriety). He has past medical history of HIV+ He denies suicide attempt / suicidal ideation at this time - Ebola screening Have you traveled outside of the country in the last 21 days: No (N) Have you had contact with anyone from an Ebola affected area: No Do you have a fever: No - Review of Systems Constitutional: Chills, Loss of Appetite, Night Sweats, Changes in sleep EENT: reports: No Symptoms Reported Respiratory: reports: No Symptoms reported Cardiac: reports: No Symptoms Reported GI: reports: Poor Appetite, Poor Fluid Intake, Abdominal cramping : reports: No Symptoms Reported Musculoskeletal: reports: Back Pain, Joint Pain, Muscle Pain Integumentary: reports: Dryness, Flushing Neuro: reports: Tremors Endocrine: reports: No Symptoms Reported Hematology: reports: No Symptoms Reported Psychiatric: reports: Anxious Other Systems: Reviewed and Negative Patient History - Patient Medical History Hx Anemia: No Hx Asthma: No Hx Chronic Obstructive Pulmonary Disease (COPD): No Hx Cancer: No Hx Cardiac Disorders: No Hx Congestive Heart Failure: No Hx Hypertension: No Hx Hypercholesterolemia: No Hx Pacemaker: No HX Cerebrovascular Accident: No Hx Seizures: No Hx Dementia: No Hx Diabetes: No Hx Gastrointestinal Disorders: No Hx Liver Disease: No Hx Genitourinary Disorders: No Hx Sexually Transmitted Disorders: No Hx Renal Disease (ESRD): No Hx Thyroid Disease: No Hx Human Immunodeficiency Virus (HIV): Yes (SINCE JANUARY 2014; HX DX PCP PNEUMONIA AND ORAL THRUSH.) Hx Hepatitis C: No (denies) Hx Depression: No Hx Suicide Attempt: No Hx Bipolar Disorder: No Hx Schizophrenia: No - Patient Surgical History Past Surgical History: Yes Hx Neurologic Surgery: No Hx Cataract Extraction: No Hx Cardiac Surgery: No Hx Lung Surgery: No Hx Breast Surgery: No Hx Breast Biopsy: No Hx Abdominal Surgery: No Hx Appendectomy: No Hx Cholecystectomy: No Hx Genitourinary Surgery: No Hx Section: No Hx Orthopedic Surgery: No Other Surgical History: ORAL SX 02/03 Anesthesia Reaction: No - PPD History Previous Implant?: Yes Documented Results: Negative w/proof Implanted On Prior [facility] Admission?: Yes Date: 03/07/18 Results: 0 mm PPD to be Administered?: Yes - Reproductive History Patient is a Female of Child Bearing Age (11 -55 yrs old): No (male) - Smoking Cessation Smoking history: Current every day smoker Have you smoked in the past 12 months: Yes Aproximately how many cigarettes per day: 5 Cigars Per Day: 0 Hx Chewing Tobacco Use: No Initiated information on smoking cessation: Yes 'Breaking Loose' booklet given: 03/19/19 - Substance & Tx. History Hx Alcohol Use: Yes Hx Substance Use: Yes Substance Use Type: Alcohol, Cocaine Hx Substance Use Treatment: Yes ([facility]) - Substances abused Alcohol Substance route: Oral Frequency: Daily Amount used: 1/2 pint of jacob Age of first use: 14 Date of last use: 03/19/19 Family Disease History - Family Disease History Family Disease History: CA: Mother (BREAST & KIDNEY-) Admission Physical Exam BHS - Vital Signs Vital Signs: Vital Signs - 24 hr 03/19/19 20:11 Temperature 98.4 F Pulse Rate 63 Respiratory 18 Rate Blood Pressure 96/64 - Physical General Appearance: Yes: Moderate Distress, Tremorous, Irritable, Anxious HEENTM: Yes: Within Normal Limits, Normal Voice Respiratory: Yes: Lungs Clear, Normal Breath Sounds, No Respiratory Distress Neck: Yes: Supple Breast: Yes: Breast Exam Deferred Cardiology: Yes: Bradycardia Abdominal: Yes: Normal Bowel Sounds, Soft Genitourinary: Yes: Within Normal Limits Back: Yes: Normal Inspection Musculoskeletal: Yes: Back pain, Muscle Pain Extremities: Yes: Tremors Neurological: Yes: Alert, Normal Mood/Affect Integumentary: Yes: Warm - Diagnostic (1) Cannabis dependence Current Visit: Yes Status: Chronic (2) HIV (human immunodeficiency virus infection) Current Visit: Yes Status: Chronic Qualifiers: HIV symptom status: unspecified Qualified Code(s): B20 - Human immunodeficiency virus [HIV] disease (3) Nicotine dependence Current Visit: Yes Status: Chronic Qualifiers: Nicotine product type: cigarettes Substance use status: uncomplicated Qualified Code(s): F17.210 - Nicotine dependence, cigarettes, uncomplicated Cleared for Admission S - Detox or Rehab [facility] Level of Care: Medically Managed Detox Regimen/Protocol: Librium Breathalyzer - Breathalyzer Breathalyzer: 0 Urine Drug Screen - Test Device Lot number: [id number] Expiration date: 12/18/20 - Control Is test valid?: Yes - Results Drug screen NEGATIVE: No Urine drug screen results: THC-Marijuana, CHERYL-Cocaine Inpatient Rehab Admission - Rehab Decision to Admit Inpatient rehab admission?: No
[2019-03-19] MEDS ORDERED: MELATONIN 5 MG TABLETS PO PRN (22:45)
[2019-03-19] MEDS ORDERED: BISMUTH SUBSALICYLATE 524 MG/30 ML UD PO PRN (22:45)
[2019-03-19] MEDS ORDERED: NICOTINE POLACRILEX 2 MG GUM BUC PRN (22:45)
[2019-03-19] MEDS ORDERED: METHOCARBAMOL 500 MG TABLET PO PRN (22:45)
[2019-03-19] MEDS ORDERED: IBUPROFEN 400 MG TABLET (FP) PO PRN (22:45)
[2019-03-19] MEDS ORDERED: ACETAMINOPHEN 325 MG TABLET (FP) PO PRN ×2 (22:45)
[2019-03-19] MEDS ORDERED: MENTHOL/PHENOL 1 EACH UD MM PRN (22:45)
[2019-03-19] MEDS ORDERED: MAG HYDROX/AL HYDROX/SIMETH 30 ML UNIT-DOSE CUP PO PRN (22:45)
[2019-03-19] MEDS ORDERED: MAGNESIUM CITRATE 300 ML BOTTLE PO PRN (22:45)
[2019-03-19] MEDS ORDERED: MAGNESIUM HYDROX 2400MG/30ML ORAL SUSPENSION 30 ML CUP PO PRN (22:45)
[2019-03-19] MEDS ORDERED: hydrOXYzine HCL 25 MG TABLET (FP) PO PRN (22:45)
[2019-03-19] MEDS ORDERED: chlordiazePOXIDE HCL 25 MG CAPSULE PO PRN (22:45)
[2019-03-20] MEDS: chlordiazePOXIDE HCL 25 MG CAPSULE PO SCH ×5 (00:06→22:24)
--- NOTE | 2019-03-20 08:08 | EKG ---
Test Reason : Blood Pressure : / mmHG Vent. Rate : 057 BPM Atrial Rate : 057 BPM P-R Int : 162 ms QRS Dur : 104 ms QT Int : 386 ms P-R-T Axes : 060 053 064 degrees QTc Int : 375 ms SINUS BRADYCARDIA RSR' OR QR PATTERN IN V1 SUGGESTS RIGHT VENTRICULAR CONDUCTION DELAY BORDERLINE ECG WHEN COMPARED WITH ECG OF 30-MAY-2018 14:43, NO SIGNIFICANT CHANGE WAS FOUND Confirmed by GIOVANNA SAINI, AMANDEEP ([id number]) on 03/20/2019 8:08:19 AM Referred By: Alfa Abbasi Confirmed By:AMANDEEP HEREDIA MD
[2019-03-20] MEDS ORDERED: PRENATAL VITAMINS W/ FOLIC ACID TABLET (FP) PO SCH (10:00)
[2019-03-20] MEDS ORDERED: NICOTINE 14 MG/24 HOURS TOPICAL PATCH TD SCH (10:00)
[2019-03-20 10:30] LABS: HEMOGLOBIN 11.9 GM/dL (11.7-16.9); MCH 23.2 pg (25.7-33.7); MCHC 31.2 g/dl (32.0-35.9); MEAN CELL VOLUME 74.2 fl (80-96); MEAN PLT VOLUME 10.1 fl (7.5-11.1); PLATELET COUNT 184 K/MM3 (134-434); RBC 5.12 M/mm3 (4.00-5.60); RDW 15.3 % (11.9-15.9); WHITE BLOOD COUNT 3.5 K/mm3 (4.0-10.0)
[2019-03-20 10:40] LABS: BILIRUBIN,TOTAL 0.2 mg/dL (0.2-1); BLOOD UREA NITROGEN 12.1 mg/dL (7-18); CALCIUM 8.4 mg/dL (8.5-10.1); CREATININE 0.7 mg/dL (0.55-1.3); POTASSIUM 4.1 mmol/L (3.5-5.1); TOT PROT 6.5 g/dl (6.4-8.2)
--- NOTE | 2019-03-20 14:17 | PN ---
S CIWA - CIWA Score Nausea/Vomitin-Mild Nausea/No Vomiting Muscle Tremors: 3 Anxiety: 2 Agitation: 2 Paroxysmal Sweats: 1-Minimal Palms Moist Orientation: 1-Uncertain about Date Tacttile Disturbances: 1-Very Mild Itch/Numbness Auditory Disturbances: 0-None Visual Disturbances: 0-None Headache: 1-Very Mild CIWA-Ar Total Score: 12 BHS Progress Note (SOAP) Subjective: 38 years old male admitted on 03/19/19 for acute alcohol withdrawal sx management feeling tired and worry about lab report that he had treatment for hepatitis c and would like to follow up with the virus load encourage the patient follow up with [facility] service as good as with his primary care provider upon discharged from detox Objective: 03/20/19 14:16 Vital Signs Temperature 97.3 F L 03/20/19 13:31 Pulse Rate 54 L 03/20/19 13:31 Respiratory Rate 18 03/20/19 13:31 Blood Pressure 94/58 L 03/20/19 13:31 O2 Sat by Pulse Oximetry (%) Laboratory Last Values WBC 3.5 K/mm3 (4.0-10.0) L 03/20/19 07:30 RBC 5.12 M/mm3 (4.00-5.60) 03/20/19 07:30 Hgb 11.9 GM/dL (11.7-16.9) 03/20/19 07:30 Hct 38.0 % (35.4-49) 03/20/19 07:30 MCV 74.2 fl (80-96) L 03/20/19 07:30 MCH 23.2 pg (25.7-33.7) L 03/20/19 07:30 MCHC 31.2 g/dl (32.0-35.9) L 03/20/19 07:30 RDW 15.3 % (11.9-15.9) 03/20/19 07:30 Plt Count 184 K/MM3 (134-434) 03/20/19 07:30 MPV 10.1 fl (7.5-11.1) D 03/20/19 07:30 Sodium 143 mmol/L (136-145) 03/20/19 07:30 Potassium 4.1 mmol/L (3.5-5.1) 03/20/19 07:30 Chloride 114 mmol/L (98-107) H 03/20/19 07:30 Carbon Dioxide 25 mmol/L (21-32) 03/20/19 07:30 Anion Gap 5 MMOL/L (8-16) L 03/20/19 07:30 BUN 12.1 mg/dL (7-18) 03/20/19 07:30 Creatinine 0.7 mg/dL (0.55-1.3) 03/20/19 07:30 Est GFR (CKD-EPI)AfAm 136.81 03/20/19 07:30 Est GFR (CKD-EPI)NonAf 118.04 03/20/19 07:30 Random Glucose 86 mg/dL (74-106) 03/20/19 07:30 Calcium 8.4 mg/dL (8.5-10.1) L 03/20/19 07:30 Total Bilirubin 0.2 mg/dL (0.2-1) 03/20/19 07:30 AST 12 U/L (15-37) L 03/20/19 07:30 ALT 19 U/L (13-61) 03/20/19 07:30 Alkaline Phosphatase 50 U/L (45-117) 03/20/19 07:30 Total Protein 6.5 g/dl (6.4-8.2) 03/20/19 07:30 Albumin 3.0 g/dl (3.4-5.0) L 03/20/19 07:30 RPR Titer Nonreactive (NONREACTIVE) 03/20/19 07:30 lab noted Assessment: 03/20/19 14:16 alcohol withdrawal sxs Plan: continue alcohol detox
[2019-03-20] MEDS ORDERED: THIAMINE HCL 100 MG TABLET (FP) PO SCH (22:00)
[2019-03-21] MEDS ORDERED: chlordiazePOXIDE HCL 25 MG CAPSULE PO SCH (05:00)
[2019-03-21 09:03] VITALS: BP 116/77; PULSE 69; TEMP 97.1
--- NOTE | 2019-03-21 13:44 | DS ---
[facility] Detox Discharge Summary Admission Date: 03/19/19 Discharge Date: 03/21/19 - History Present History: Alcohol Dependence Additional Comments: 38 years old male admitted on 03/19/19 for acute alcohol withdrawal sx management insists to leave the detox that "things to do" has to leave the detox today patient was doing well with librium detox regimen feeling better today determines to start alcohol recovery in the community setting Pertinent Past History: long history of hiv managed by infectious disease specialist patient agrees to bring in medication list and lab report to [place] for follow up - Physical Exam Results Vital Signs: Vital Signs Temperature 97.1 F L 03/21/19 09:02 Pulse Rate 69 03/21/19 09:02 Respiratory Rate 18 03/21/19 09:02 Blood Pressure 116/77 03/21/19 09:02 O2 Sat by Pulse Oximetry (%) Pertinent Admission Physical Exam Findings: alcohol withdrawal sx Vital Signs Temperature 97.1 F L 03/21/19 09:02 Pulse Rate 69 03/21/19 09:02 Respiratory Rate 18 03/21/19 09:02 Blood Pressure 116/77 03/21/19 09:02 O2 Sat by Pulse Oximetry (%) Laboratory Last Values WBC 3.5 K/mm3 (4.0-10.0) L 03/20/19 07:30 RBC 5.12 M/mm3 (4.00-5.60) 03/20/19 07:30 Hgb 11.9 GM/dL (11.7-16.9) 03/20/19 07:30 Hct 38.0 % (35.4-49) 03/20/19 07:30 MCV 74.2 fl (80-96) L 03/20/19 07:30 MCH 23.2 pg (25.7-33.7) L 03/20/19 07:30 MCHC 31.2 g/dl (32.0-35.9) L 03/20/19 07:30 RDW 15.3 % (11.9-15.9) 03/20/19 07:30 Plt Count 184 K/MM3 (134-434) 03/20/19 07:30 MPV 10.1 fl (7.5-11.1) D 03/20/19 07:30 Sodium 143 mmol/L (136-145) 03/20/19 07:30 Potassium 4.1 mmol/L (3.5-5.1) 03/20/19 07:30 Chloride 114 mmol/L (98-107) H 03/20/19 07:30 Carbon Dioxide 25 mmol/L (21-32) 03/20/19 07:30 Anion Gap 5 MMOL/L (8-16) L 03/20/19 07:30 BUN 12.1 mg/dL (7-18) 03/20/19 07:30 Creatinine 0.7 mg/dL (0.55-1.3) 03/20/19 07:30 Est GFR (CKD-EPI)AfAm 136.81 03/20/19 07:30 Est GFR (CKD-EPI)NonAf 118.04 03/20/19 07:30 Random Glucose 86 mg/dL (74-106) 03/20/19 07:30 Calcium 8.4 mg/dL (8.5-10.1) L 03/20/19 07:30 Total Bilirubin 0.2 mg/dL (0.2-1) 03/20/19 07:30 AST 12 U/L (15-37) L 03/20/19 07:30 ALT 19 U/L (13-61) 03/20/19 07:30 Alkaline Phosphatase 50 U/L (45-117) 03/20/19 07:30 Total Protein 6.5 g/dl (6.4-8.2) 03/20/19 07:30 Albumin 3.0 g/dl (3.4-5.0) L 03/20/19 07:30 RPR Titer Nonreactive (NONREACTIVE) 03/20/19 07:30 lab noted - Treatment Hospital Course: Detox Protocol Followed, Responded well Patient has Accepted a Rehab Referral to: community support approach - Medication Discharge Medications: Ambulatory Orders Emtricitabine/Tenofov Alafenam [Descovy 200-25 mg Tablet (Nf)] 1 each PO DAILY 08/09/17 Darunavir/Cobicistat [Prezcobix 800 mg-150 mg Tablet] 1 tab PO DAILY 03/05/18 - Diagnosis (1) Nicotine dependence Status: Acute Qualifiers: Nicotine product type: cigarettes Substance use status: in withdrawal Qualified Code(s): F17.213 - Nicotine dependence, cigarettes, with withdrawal (2) Alcohol dependence with uncomplicated withdrawal Status: Acute (3) Weight loss Status: Acute (4) HIV (human immunodeficiency virus infection) Status: Chronic Qualifiers: HIV symptom status: asymptomatic Qualified Code(s): Z21 - Asymptomatic human immunodeficiency virus [HIV] infection status - AMA Did Patient Leave Against Medical Advice: Yes
[2019-03-22] MEDS ORDERED: chlordiazePOXIDE HCL 10 MG CAPSULE PO PRN
[2019-03-22] MEDS ORDERED: chlordiazePOXIDE HCL 10 MG CAPSULE PO SCH (05:00)
[2019-03-23] MEDS ORDERED: chlordiazePOXIDE HCL 10 MG CAPSULE PO SCH (05:00)
[2019-03-24] MEDS ORDERED: chlordiazePOXIDE HCL 10 MG CAPSULE PO ONE (05:00)
== END 2019-03-21 09:30 | disposition left against medical advice (07) | DRG 770 ==
LOC: YASAS 16:07 → Y3N 22:55
PROVIDERS: ADMIT Surgery; ATTEND Surgery
PROC: HZ2ZZZZ Detoxification Services for Substance Abuse Treatment (ICD-10-PCS; principal; 2019-03-19)
DX: F10.230 Alcohol dependence with withdrawal, uncomplicated (principal); F12.20 Cannabis dependence, uncomplicated; F17.213 Nicotine dependence, cigarettes, with withdrawal; Z21 Asymptomatic human immunodeficiency virus [HIV] infection status; R63.4 Abnormal weight loss; Z68.20 Body mass index [BMI] 20.0-20.9, adult
CPT/HCPCS: 36415; 80053; 85027; 86480; 86593; 93005; 93010

== ENCOUNTER 2020-04-23 12:43 | Inpatient (IN) | payer OTHER ==
--- NOTE | 2020-04-23 13:01 | BHS.RME ---
Substance Use & Tx History - Substance Use History Alcohol Substance amount: 2 pints vodka + 5 beers Frequency of use: Daily Substance route: Oral Date of Last Use: 04/23/20 Cocaine-Crack Substance amount: $20 Frequency of use: Daily Substance route: Smoking Date of Last Use: 04/22/20 Nicotine Substance amount: 1/2 pack Frequency of use: Daily Substance route: Oral Date of Last Use: 04/23/20 - Last Treatment Date of last treatment: 01/05-01/08/20 left [facility] Treatment type: Substance Use Disorder (MANNY) Where was last treatment: Detox Physical/Psych/Mental Status - Behavior General Behavior: Increased activity (restlessness, agitation) Eye Contact: Normal - Cooperativeness Cooperativeness: Cooperative - Thinking Thought Processes: Tight, Logical, Goal Directed - Physical Health Problems Is patient presently having any pain?: No Does patient presently have any injuries (include location): No Does patient currently have a fever: No Is patient : No CIWA Nausea/Vomitin Muscle Tremors: 1-None Visible, but [place] Anxiety: 5 Agitation: 1-Slight > Activity Paroxysmal Sweats: No Perspiration Orientation: 1-Uncertain about Date Tacttile Disturbances: 0-None Auditory Disturbances: 0-None Visual Disturbances: 0-None Headache: 3-Moderate CIWA-Ar Total Score: 14
[2020-04-23 13:24] VITALS: BMI 20.7
--- NOTE | 2020-04-23 15:25 | HP ---
CIWA Score Nausea/Vomitin Muscle Tremors: 1-None Visible, but [place] Anxiety: 5 Agitation: 1-Slight > Activity Paroxysmal Sweats: No Perspiration Orientation: 1-Uncertain about Date Tacttile Disturbances: 0-None Auditory Disturbances: 0-None Visual Disturbances: 0-None Headache: 3-Moderate CIWA-Ar Total Score: 14 - Admission Criteria OASAS Guidelines: Admission for Medically Managed Detox: Requires at least one of the followin. CIWA greater than 12 2. Seizures within the past 24 hours 3. Delirium tremens within the past 24 hours 4. Hallucinations within the past 24 hours 5. Acute intervention needed for co occurring medical disorder 6. Acute intervention needed for co occurring psychiatric disorder 7. Severe withdrawal that cannot be handled at a lower level of care (continued vomiting, continued diarrhea, abnormal vital signs) requiring intravenous medication and/or fluids 8. Admitting History and Physical - Smoking History Smoking history: Current every day smoker Have you smoked in the past 12 months: Yes Aproximately how many cigarettes per day: 10 - Alcohol/Substance Use Hx Alcohol Use: Yes Admission [facility] Allergies/Adverse Reactions: Allergies Allergy/AdvReac Type Severity Reaction Status Date / Time No Known Allergies Allergy Verified 01/06/20 14:54 Patient History - Patient Medical History Hx Anemia: No Hx Asthma: No Hx Chronic Obstructive Pulmonary Disease (COPD): No Hx Cancer: No Hx Cardiac Disorders: No Hx Congestive Heart Failure: No Hx Hypertension: No Hx Hypercholesterolemia: No Hx Pacemaker: No HX Cerebrovascular Accident: No Hx Seizures: No Hx Dementia: No Hx Diabetes: No Hx Gastrointestinal Disorders: No Hx Liver Disease: No Hx Genitourinary Disorders: No Hx Sexually Transmitted Disorders: Yes Hx Renal Disease (ESRD): No Hx Thyroid Disease: No Hx Human Immunodeficiency Virus (HIV): Yes (SINCE JANUARY 2014; HX DX PCP PNEUMONIA AND ORAL THRUSH.) Hx Hepatitis C: No (denies) Hx Depression: No Hx Suicide Attempt: No Hx Bipolar Disorder: No Hx Schizophrenia: No - Patient Surgical History Past Surgical History: Yes Hx Neurologic Surgery: No Hx Cataract Extraction: No Hx Cardiac Surgery: No Hx Lung Surgery: No Hx Breast Surgery: No Hx Breast Biopsy: No Hx Abdominal Surgery: No Hx Appendectomy: No Hx Cholecystectomy: No Hx Genitourinary Surgery: No Hx Section: No Hx Orthopedic Surgery: No Other Surgical History: ORAL SX 02/03 Anesthesia Reaction: No - PPD History Date: 01/08/20 Results: 0 mm - Smoking Cessation Smoking history: Current every day smoker Have you smoked in the past 12 months: Yes Aproximately how many cigarettes per day: 10 Cigars Per Day: 0 Hx Chewing Tobacco Use: No Admission Physical Exam BHS - Vital Signs Vital Signs: Vital Signs - 24 hr 04/23/20 13:22 Temperature 97.6 F Pulse Rate 78 Respiratory 16 Rate Blood Pressure 117/71 Breathalyzer - Breathalyzer Breathalyzer: 0 Urine Drug Screen - Test Device Lot number: [id number] Expiration date: 04/20/21 - Control Is test valid?: Yes - Results Drug screen NEGATIVE: No Urine drug screen results: CHERYL-Cocaine
--- NOTE | 2020-04-23 15:33 | HP ---
CIWA Score Nausea/Vomitin Muscle Tremors: 1-None Visible, but [place] Anxiety: 5 Agitation: 1-Slight > Activity Paroxysmal Sweats: No Perspiration Orientation: 1-Uncertain about Date Tacttile Disturbances: 0-None Auditory Disturbances: 0-None Visual Disturbances: 0-None Headache: 3-Moderate CIWA-Ar Total Score: 14 - Admission Criteria OASAS Guidelines: Admission for Medically Managed Detox: Requires at least one of the followin. CIWA greater than 12 2. Seizures within the past 24 hours 3. Delirium tremens within the past 24 hours 4. Hallucinations within the past 24 hours 5. Acute intervention needed for co occurring medical disorder 6. Acute intervention needed for co occurring psychiatric disorder 7. Severe withdrawal that cannot be handled at a lower level of care (continued vomiting, continued diarrhea, abnormal vital signs) requiring intravenous medication and/or fluids 8. Admitting History and Physical - Admission Chief Complaint: alcohol detox History of Present Illness: patient is a 39 y/o male with a past medical history of HIV who presents for alcohol detox. Patient first started drinking 15. Patient drinks 2 pints of vodka and sometimes beer a day. Last drink was today. never had any seizures or blackout from drinking. Positive for needing an eyeopener. Patients longest itme being sober is a few months. Patient has been to rehab before multiple times. Patient use crack, about 20 dollars a day, last use was yesterday. Patient smokes half a pack of cigaretts a day. Substance Use & Tx History - Substance Use History Alcohol Substance amount: 2 pints vodka + 5 beers Frequency of use: Daily Substance route: Oral Date of Last Use: 04/23/20 Cocaine-Crack Substance amount: $20 Frequency of use: Daily Substance route: Smoking Date of Last Use: 04/22/20 Nicotine Substance amount: 1/2 pack Frequency of use: Daily Substance route: Oral Date of Last Use: 04/23/20 - Last Treatment Date of last treatment: 01/05-01/08/20 left [facility] Treatment type: Substance Use Disorder (MANNY) Where was last treatment: Detox PMHX: HIV SGHX: denies Social hx: live sin the [place], alone Patient meets inpatient criteria for alcohol detox, 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 - Smoking History Smoking history: Current every day smoker Have you smoked in the past 12 months: Yes Aproximately how many cigarettes per day: 10 - Alcohol/Substance Use Hx Alcohol Use: Yes Admission [facility] Allergies/Adverse Reactions: Allergies Allergy/AdvReac Type Severity Reaction Status Date / Time No Known Allergies Allergy Verified 04/23/20 16:21 - Ebola screening Have you traveled outside of the country in the last 21 days: No Have you had contact with anyone from an Ebola affected area: No Have you been sick,other than usual withdrawal symptoms: No Do you have a fever: No - Review of Systems Constitutional: Other (denies fever, chills) EENT: denies: Blurred Vision, Tinnitus Respiratory: denies: Cough, Wheezing Cardiac: denies: Chest Pain GI: denies: Diarrhea, Nausea, Vomiting Musculoskeletal: denies: Muscle Pain Integumentary: denies: Bruising Neuro: denies: Dizziness Hematology: denies: Easy Bleeding Psychiatric: denies: Agitated Patient History - Patient Medical History Hx Anemia: No Hx Asthma: No Hx Chronic Obstructive Pulmonary Disease (COPD): No Hx Cancer: No Hx Cardiac Disorders: No Hx Congestive Heart Failure: No Hx Hypertension: No Hx Hypercholesterolemia: No Hx Pacemaker: No HX Cerebrovascular Accident: No Hx Seizures: No Hx Dementia: No Hx Diabetes: No Hx Gastrointestinal Disorders: No Hx Liver Disease: No Hx Genitourinary Disorders: No Hx Sexually Transmitted Disorders: Yes Hx Renal Disease (ESRD): No Hx Thyroid Disease: No Hx Human Immunodeficiency Virus (HIV): Yes (SINCE JANUARY 2014; HX DX PCP PNEUMONIA AND ORAL THRUSH.) Hx Hepatitis C: No (denies) Hx Depression: No Hx Suicide Attempt: No Hx Bipolar Disorder: No Hx Schizophrenia: No - Patient Surgical History Past Surgical History: Yes Hx Neurologic Surgery: No Hx Cataract Extraction: No Hx Cardiac Surgery: No Hx Lung Surgery: No Hx Breast Surgery: No Hx Breast Biopsy: No Hx Abdominal Surgery: No Hx Appendectomy: No Hx Cholecystectomy: No Hx Genitourinary Surgery: No Hx Section: No Hx Orthopedic Surgery: No Other Surgical History: ORAL SX 02/03 Anesthesia Reaction: No - PPD History Date: 01/08/20 Results: 0 mm - Smoking Cessation Smoking history: Current every day smoker Have you smoked in the past 12 months: Yes Aproximately how many cigarettes per day: 10 Cigars Per Day: 0 Hx Chewing Tobacco Use: No Initiated information on smoking cessation: No - Substance & Tx. History Hx Alcohol Use: Yes Hx Substance Use: Yes Substance Use Type: Cocaine - Substances abused Alcohol Substance route: Oral Frequency: Daily Amount used: 2 pints/ 3 bottles Age of first use: 13 Date of last use: 04/23/20 Crack Substance route: Smoking Frequency: Daily Amount used: 20 dollars Age of first use: 33 Date of last use: 04/22/20 Admission Physical Exam [facility] - Vital Signs Vital Signs: Vital Signs - 24 hr 04/23/20 13:22 Temperature 97.6 F Pulse Rate 78 Respiratory 16 Rate Blood Pressure 117/71 - Physical General Appearance: Yes: No Apparent Distress HEENTM: Yes: Normocephalic Respiratory: Yes: Chest Non-Tender, No Respiratory Distress, No Accessory Muscle Use Neck: Yes: Within Normal Limits Cardiology: Yes: Regular Rhythm, Regular Rate Abdominal: Yes: Within Normal Limits, Flat Back: Yes: Normal Inspection Musculoskeletal: Yes: Within Normal Limits, full range of Motion Extremities: No: Pedal Edema Neurological: Yes: Fully Oriented, Alert, Normal Response Integumentary: Yes: Within Normal Limits - Diagnostic (1) Alcohol dependence with uncomplicated withdrawal Current Visit: Yes Status: Acute (2) Cocaine dependence Current Visit: Yes Status: Acute Qualifiers: Substance use status: uncomplicated Qualified Code(s): F14.20 - Cocaine dependence, uncomplicated (3) Nicotine dependence Current Visit: Yes Status: Acute Qualifiers: Nicotine product type: cigarettes Substance use status: in withdrawal Qualified Code(s): F17.213 - Nicotine dependence, cigarettes, with withdrawal (4) HIV (human immunodeficiency virus infection) Current Visit: Yes Status: Chronic Qualifiers: HIV symptom status: asymptomatic Qualified Code(s): Z21 - Asymptomatic human immunodeficiency virus [HIV] infection status Cleared for Admission [facility] - Detox or Rehab [facility] Level of Care: Medically Managed Detox Regimen/Protocol: Librium Breathalyzer - Breathalyzer Breathalyzer: 0 Vital Signs - Vital Signs Vital signs refused: No Temperature: 97.6 F Temperature source: Oral Pulse Rate: 76 Respiratory Rate: 16 Blood Pressure: 117/71 BP Location: Left Arm - Height Height: 6 ft 2 in - Weight Weight: 73.028 kg - BMI Body Mass Index (BMI): 20.7 Urine Drug Screen - Test Device Lot number: [id number] Expiration date: 04/20/21 - Control Is test valid?: Yes - Results Drug screen NEGATIVE: No Urine drug screen results: CHERYL-Cocaine Inpatient Rehab Admission - Rehab Decision to Admit Inpatient rehab admission?: No
[2020-04-23] MEDS ORDERED: ACETAMINOPHEN 325 MG TABLET (FP) PO PRN ×2 (15:38)
[2020-04-23] MEDS ORDERED: METHOCARBAMOL 500 MG TABLET PO PRN (15:38)
[2020-04-23] MEDS ORDERED: ONDANSETRON *ODT* 4 MG TABLET SL PRN (15:38)
[2020-04-23] MEDS ORDERED: chlordiazePOXIDE HCL 25 MG CAPSULE PO PRN (15:38)
[2020-04-23] MEDS ORDERED: MAGNESIUM HYDROX 2400MG/30ML ORAL SUSPENSION 30 ML CUP PO PRN (15:38)
[2020-04-23] MEDS ORDERED: IBUPROFEN 400 MG TABLET (FP) PO PRN (15:38)
[2020-04-23] MEDS ORDERED: MAGNESIUM CITRATE 300 ML BOTTLE PO PRN (15:38)
[2020-04-23] MEDS ORDERED: MENTHOL/PHENOL 1 EACH UD MM PRN (15:38)
[2020-04-23] MEDS ORDERED: BISMUTH SUBSALICYLATE 524 MG/30 ML UD PO PRN (15:38)
[2020-04-23] MEDS ORDERED: NICOTINE POLACRILEX 2 MG GUM BUC PRN (15:38)
[2020-04-23] MEDS ORDERED: MAG HYDROX/AL HYDROX/SIMETH 30 ML UNIT-DOSE CUP PO PRN (15:38)
[2020-04-23] MEDS ORDERED: EMTRICITABINE/TENOFOV ALAFENAM (DESCOVY) TABLET PO SCH (15:45)
[2020-04-23] MEDS ORDERED: DARUNAVIR 800 MG/COBICISTAT 150MG TABLET PO SCH ×2 (15:45→16:00)
--- NOTE | 2020-04-23 15:58 | PN ---
Teaching Attending Note Name of Resident: Lashonda Khan ATTENDING PHYSICIAN STATEMENT I saw and evaluated the patient. I reviewed the resident's note and discussed the case with the resident. I agree with the resident's findings and plan as documented. SUBJECTIVE: OBJECTIVE: ASSESSMENT AND PLAN: patient is a 39 y/o male with a past medical history of HIV who presents for alcohol detox. Patient first started drinking 15. Patient drinks 2 pints of vodka and sometimes beer a day. Last drink was today. never had any seizures or blackout from drinking. Positive for needing an eyeopener. Patients longest time being sober is a few months. Patient has been to rehab before multiple times. Patient use crack, about 20 dollars a day, last use was yesterday. Patient smokes half a pack of cigarettes a day. Results Drug screen NEGATIVE: No Urine drug screen results: CHERYL-Cocaine Imp 1. Alcohol use disorder 2. Cocaine use disorder 3. Nicotine dependence Plan 1. Librium detox protocol
[2020-04-23] MEDS: hydrOXYzine PAMOATE 25 MG CAPSULE (FP) PO SCH ×2 (18:30→23:29)
[2020-04-23] MEDS: chlordiazePOXIDE HCL 25 MG CAPSULE PO SCH ×2 (18:30→23:29)
[2020-04-23] MEDS: NICOTINE 14 MG/24 HOURS TOPICAL PATCH TD SCH (18:34)
[2020-04-23] MEDS: PRENATAL VITAMINS W/ FOLIC ACID TABLET (FP) PO SCH (18:36)
[2020-04-23] MEDS: EMTRICITABINE/TENOFOV ALAFENAM (DESCOVY) TABLET PO SCH (22:00)
[2020-04-23] MEDS ORDERED: THIAMINE HCL 100 MG TABLET (FP) PO SCH (22:00)
[2020-04-23] MEDS ORDERED: MELATONIN 5 MG TABLETS PO SCH (22:00)
[2020-04-24] MEDS: chlordiazePOXIDE HCL 25 MG CAPSULE PO SCH ×3 (08:01→18:17)
[2020-04-24] MEDS: hydrOXYzine PAMOATE 25 MG CAPSULE (FP) PO SCH ×4 (08:01→18:17)
[2020-04-24] MEDS ORDERED: DARUNAVIR 800 MG/COBICISTAT 150MG TABLET PO SCH (09:45)
--- NOTE | 2020-04-24 09:45 | PN ---
S Progress Note (SOAP) Subjective: No complaints Objective: 04/24/20 09:43 PE Gnl: WDWN, in no distress MS: nl mentation Motor: moves limbs well Coord: no tremor Gait: steady Laboratory Tests 04/23/20 15:40 Syphilis Serology Non-reactive Home Medication List Medication Instructions Recorded Confirmed Type Emtricitabine/Tenofov Alafenam 1 each PO DAILY 08/09/17 04/23/20 History [Descovy 200-25 mg Tablet (Nf)] Darunavir/Cobicistat [Prezcobix 1 tab PO DAILY 03/05/18 04/23/20 History 800 mg-150 mg Tablet] Active Medications Generic Name Dose Route Start Last Admin Trade Name Freq PRN Reason Stop Dose Admin Acetaminophen 650 mg 04/23/20 15:38 Tylenol - PO Q6H PRN PAIN LEVEL 4 - 6 Acetaminophen 650 mg 04/23/20 15:38 Tylenol - PO Q6H PRN FEVER Al Hydroxide/Mg Hydroxide 30 ml 04/23/20 15:38 Mylanta Oral Suspension - PO Q6H PRN DYSPEPSIA Bismuth Subsalicylate 524 mg 04/23/20 15:38 Pepto-Bismol - PO Q1H PRN DIARRHEA Chlordiazepoxide HCl 50 mg 04/23/20 17:00 04/24/20 08:01 Librium - PO 04/24/20 23:01 Not Given [id number] WU Chlordiazepoxide HCl 25 mg 04/25/20 05:00 Librium - PO 04/25/20 23:01 [id number] WU Chlordiazepoxide HCl 25 mg 04/23/20 15:38 Librium - PO 04/25/20 23:59 Q4H PRN WITHDRAWAL(CONT SUBST) Chlordiazepoxide HCl 10 mg 04/26/20 05:00 Librium - PO 04/26/20 23:01 [id number] WU Chlordiazepoxide HCl 10 mg 04/27/20 05:00 Librium - PO 04/27/20 17:01 Q12H WU Chlordiazepoxide HCl 10 mg 04/26/20 00:00 Librium - PO 04/27/20 00:00 Q4H PRN WITHDRAWAL(CONT SUBST) Chlordiazepoxide HCl 10 mg 04/28/20 05:00 Librium - PO 04/28/20 05:01 ONCE@0500 ONE Eucalyptus/Menthol/Phenol/Sorbitol 1 each 04/23/20 15:38 Cepastat Lozenge - MM 04/29/20 15:38 Q4H PRN SORE THROAT Hydroxyzine Pamoate 25 mg 04/23/20 18:00 04/24/20 08:01 Vistaril - PO 04/29/20 15:38 Not Given Q4HWA [facility] Ibuprofen 400 mg 04/23/20 15:38 Motrin - PO Q6H PRN PAIN LEVEL 1 - 3 Magnesium Citrate 300 ml 04/23/20 15:38 Citroma - PO Q48H PRN CONSTIPATION Magnesium Hydroxide 30 ml 04/23/20 15:38 Milk Of Magnesia - PO PRN PRN CONSTIPATION Melatonin 5 mg 04/23/20 22:00 04/23/20 23:29 Melatonin PO Not Given HS [facility] Methocarbamol 500 mg 04/23/20 15:38 Robaxin - PO 04/29/20 15:38 Q6H PRN MUSCLE SPASMS Nicotine 14 mg 04/23/20 17:15 04/23/20 18:34 Nicoderm Patch - TD Not Given DAILY [facility] Nicotine Polacrilex 2 mg 04/23/20 15:38 Nicorette Gum - BUC Q2H PRN NICOTINE REPLACEMENT RX Ondansetron HCl 4 mg 04/23/20 15:38 Zofran Odt - SL 04/29/20 15:39 Q8H PRN Nausea/Vomiting Multivit/Folic Acid/Iron 1 tab 04/23/20 16:45 04/23/20 18:36 Vitamins (Sjr) - PO 1 tab DAILY [facility] Administration Thiamine HCl 100 mg 04/23/20 22:00 04/23/20 23:29 Vitamin B1 - PO Not Given HS [facility] Vital Signs Temperature 96.9 F L 04/24/20 08:46 Pulse Rate 86 04/24/20 08:46 Respiratory Rate 16 04/24/20 08:46 Blood Pressure 123/78 04/24/20 08:46 O2 Sat by Pulse Oximetry (%) 96 04/24/20 07:14 Assessment: 04/24/20 09:42 Mr. Castillo is a 39 y/o male with a past medical history of HIV who presents for alcohol detox. Patient first started drinking 15. Patient drinks 2 pints of vodka and sometimes beer a day. Last drink was today. never had any seizures or blackout from drinking. Positive for needing an eyeopener. Patients longest time being sober is a few months. Patient has been to rehab before multiple times. Patient use crack, about 20 dollars a day, last use was yesterday. Patient smokes half a pack of cigaretts a day. Imp 1. Alcohol use disorder 2. Cocaine use disorder 3. Nicotine dependence 4. HIV positive Plan: 1. Librium detox protocol 2. routine labs pending
[2020-04-24] MEDS: EMTRICITABINE/TENOFOV ALAFENAM (DESCOVY) TABLET PO SCH (10:30)
[2020-04-24] MEDS: PRENATAL VITAMINS W/ FOLIC ACID TABLET (FP) PO SCH (10:31)
[2020-04-24] MEDS: NICOTINE 14 MG/24 HOURS TOPICAL PATCH TD SCH (10:33)
[2020-04-24 12:28] LABS: HEMATOCRIT 41.6 % (35.4-49); MCH 23.2 pg (25.7-33.7); MCHC 31.4 g/dl (32.0-35.9); MEAN PLT VOLUME 11.1 fl (7.5-11.1); PLATELET COUNT 173 K/MM3 (134-434); RBC 5.62 M/mm3 (4.00-5.60); RDW 16.5 % (11.9-15.9); WHITE BLOOD COUNT 4.8 K/mm3 (4.0-10.0)
[2020-04-24 12:39] LABS: ALBUMIN 3.4 g/dl (3.4-5.0); BILIRUBIN,TOTAL 0.4 mg/dL (0.2-1); BLOOD UREA NITROGEN 15.8 mg/dL (7-18); CALCIUM 9.1 mg/dL (8.5-10.1); CREATININE 1.1 mg/dL (0.55-1.3); POTASSIUM 4.2 mmol/L (3.5-5.1); TOT PROT 8.3 g/dl (6.4-8.2)
[2020-04-24 17:14] VITALS: BP 105/67; PULSE 67; TEMP 97.3
--- NOTE | 2020-04-24 19:59 | DS ---
[facility] Detox Discharge Summary Admission Date: 04/23/20 Discharge Date: 04/24/20 - History Present History: Alcohol Dependence, Cocaine Dependence Additional Comments: Patient is a 39 yo male with hx of alcohol dependence is here for alcohol detox. Patient decided to leave AMA, although advised on the risk of interrupting treatment. Reports he has some urgent matter he needs attend and refuse to disclose any further information. Patient AOx3, no acute distress, no suicidal / homicidal ideation. Pertinent Past History: All Active Problems Alcohol dependence with uncomplicated withdrawal (Acute) Cocaine dependence (Acute) Leukopenia (Acute) Nicotine dependence (Acute) Cannabis dependence (Chronic) HIV (human immunodeficiency virus infection) (Chronic) Weight loss (Chronic) - Physical Exam Results Vital Signs: Vital Signs Temperature 97.3 F L 04/24/20 16:59 Pulse Rate 67 04/24/20 16:59 Respiratory Rate 18 04/24/20 16:59 Blood Pressure 105/67 04/24/20 16:59 O2 Sat by Pulse Oximetry (%) 98 04/24/20 12:45 Pertinent Admission Physical Exam Findings: Vital Signs Temperature 97.3 F L 04/24/20 16:59 Pulse Rate 67 04/24/20 16:59 Respiratory Rate 18 04/24/20 16:59 Blood Pressure 105/67 04/24/20 16:59 O2 Sat by Pulse Oximetry (%) 98 04/24/20 12:45 Laboratory Last Values WBC 4.8 K/mm3 (4.0-10.0) 04/24/20 08:40 RBC 5.62 M/mm3 (4.00-5.60) H 04/24/20 08:40 Hgb 13.0 GM/dL (11.7-16.9) 04/24/20 08:40 Hct 41.6 % (35.4-49) 04/24/20 08:40 MCV 74.0 fl (80-96) L 04/24/20 08:40 MCH 23.2 pg (25.7-33.7) L 04/24/20 08:40 MCHC 31.4 g/dl (32.0-35.9) L 04/24/20 08:40 RDW 16.5 % (11.9-15.9) H 04/24/20 08:40 Plt Count 173 K/MM3 (134-434) 04/24/20 08:40 MPV 11.1 fl (7.5-11.1) 04/24/20 08:40 Sodium 140 mmol/L (136-145) 04/24/20 08:40 Potassium 4.2 mmol/L (3.5-5.1) 04/24/20 08:40 Chloride 110 mmol/L (98-107) H 04/24/20 08:40 Carbon Dioxide 27 mmol/L (21-32) 04/24/20 08:40 Anion Gap 4 MMOL/L (8-16) L 04/24/20 08:40 BUN 15.8 mg/dL (7-18) 04/24/20 08:40 Creatinine 1.1 mg/dL (0.55-1.3) 04/24/20 08:40 Est GFR (CKD-EPI)AfAm 96.13 04/24/20 08:40 Est GFR (CKD-EPI)NonAf 82.94 04/24/20 08:40 Random Glucose 63 mg/dL (74-106) L 04/24/20 08:40 Calcium 9.1 mg/dL (8.5-10.1) 04/24/20 08:40 Total Bilirubin 0.4 mg/dL (0.2-1) 04/24/20 08:40 AST 18 U/L (15-37) 04/24/20 08:40 ALT 16 U/L (13-61) 04/24/20 08:40 Alkaline Phosphatase 63 U/L (45-117) 04/24/20 08:40 Total Protein 8.3 g/dl (6.4-8.2) H 04/24/20 08:40 Albumin 3.4 g/dl (3.4-5.0) 04/24/20 08:40 Syphilis Serology Non-reactive (NONREACTIVE) 04/23/20 15:40 COVID-19 (AGGIE) Not detected (Not Detected) 04/23/20 16:35 Aox3 no acute distress EENT WNL No adventitious breath sounds Full ROM, weight bearing, no gait disturbance skin intact, no edema - Treatment Hospital Course: Discharged Condition Good - Medication Discharge Medications: Ambulatory Orders Emtricitabine/Tenofov Alafenam [Descovy 200-25 mg Tablet (Nf)] 1 each PO DAILY 08/09/17 Darunavir/Cobicistat [Prezcobix 800 mg-150 mg Tablet] 1 tab PO DAILY 03/05/18 - Diagnosis (1) Alcohol dependence with uncomplicated withdrawal Status: Acute (2) Cocaine dependence Status: Acute Qualifiers: Substance use status: uncomplicated Qualified Code(s): F14.20 - Cocaine dependence, uncomplicated (3) Nicotine dependence Status: Acute Qualifiers: Nicotine product type: cigarettes Substance use status: in withdrawal Qualified Code(s): F17.213 - Nicotine dependence, cigarettes, with withdrawal (4) HIV (human immunodeficiency virus infection) Status: Chronic Qualifiers: HIV symptom status: asymptomatic Qualified Code(s): Z21 - Asymptomatic human immunodeficiency virus [HIV] infection status (5) Weight loss Status: Chronic - AMA Did Patient Leave Against Medical Advice: Yes
[2020-04-25] MEDS ORDERED: chlordiazePOXIDE HCL 25 MG CAPSULE PO SCH (05:00)
[2020-04-26] MEDS ORDERED: chlordiazePOXIDE HCL 10 MG CAPSULE PO PRN
[2020-04-26] MEDS ORDERED: chlordiazePOXIDE HCL 10 MG CAPSULE PO SCH (05:00)
[2020-04-27] MEDS ORDERED: chlordiazePOXIDE HCL 10 MG CAPSULE PO SCH (05:00)
[2020-04-28] MEDS ORDERED: chlordiazePOXIDE HCL 10 MG CAPSULE PO ONE (05:00)
== END 2020-04-24 19:30 | disposition left against medical advice (07) | DRG 770 ==
LOC: YASAS 12:43 → Y3N 16:34
PROVIDERS: ADMIT Allergy & Immunology; ATTEND Allergy & Immunology
PROC: HZ2ZZZZ Detoxification Services for Substance Abuse Treatment (ICD-10-PCS; principal; 2020-04-23)
DX: F10.230 Alcohol dependence with withdrawal, uncomplicated (principal); F14.20 Cocaine dependence, uncomplicated; F12.20 Cannabis dependence, uncomplicated; F17.210 Nicotine dependence, cigarettes, uncomplicated; Z21 Asymptomatic human immunodeficiency virus [HIV] infection status; D72.819 Decreased white blood cell count, unspecified; R63.4 Abnormal weight loss; Z68.20 Body mass index [BMI] 20.0-20.9, adult
CPT/HCPCS: 36415; 80053; 85027; 86780; U0003

== ENCOUNTER 2022-09-06 11:11 | Inpatient (IN) | payer OTHER ==
[2022-09-06 12:17] VITALS: BMI 20.1
[2022-09-06] MEDS ORDERED: IBUPROFEN 400 MG TABLET (FP) PO PRN (12:49)
[2022-09-06] MEDS ORDERED: DICYCLOMINE HCL 10 MG CAPSULE PO PRN (12:49)
[2022-09-06] MEDS ORDERED: POLYETHYLENE GLYCOL (HEALTHYLAX) 3350 17 GM PACKET PO PRN (12:49)
[2022-09-06] MEDS ORDERED: MAGNESIUM HYDROX 2400MG/30ML ORAL SUSPENSION 30 ML CUP PO PRN (12:49)
[2022-09-06] MEDS ORDERED: MAG HYDROX/AL HYDROX/SIMETH 30 ML UNIT-DOSE CUP PO PRN (12:49)
[2022-09-06] MEDS ORDERED: BENZOCAINE/MENTHOL (CHLORASEPTIC ) LOZENGE MM PRN (12:49)
[2022-09-06] MEDS ORDERED: NALOXONE HCL (KLOXXADO) 8 MG SPRAY NS PRN (12:49)
[2022-09-06] MEDS ORDERED: LOPERAMIDE HCL 2 MG CAPSULE PO PRN (12:49)
[2022-09-06] MEDS ORDERED: ACETAMINOPHEN 325 MG TABLET (FP) PO PRN ×2 (12:49)
[2022-09-06] MEDS ORDERED: hydrOXYzine PAMOATE 25 MG CAPSULE (FP) PO PRN (12:49)
[2022-09-06] MEDS ORDERED: NICOTINE POLACRILEX 2 MG GUM BUC PRN (12:49)
[2022-09-06] MEDS ORDERED: ONDANSETRON *ODT* 4 MG TABLET SL PRN (12:49)
[2022-09-06] MEDS ORDERED: IBUPROFEN 600 MG TABLET (FP) PO PRN (12:49)
[2022-09-06] MEDS ORDERED: METHOCARBAMOL 500 MG TABLET PO PRN (12:49)
[2022-09-06] MEDS ORDERED: BISMUTH SUBSALICYLATE 524 MG/30 ML PO PRN (12:49)
[2022-09-06] MEDS ORDERED: NICOTINE 10 MG CARTRIDGE (INHALER) IH PRN (12:49)
[2022-09-06] MEDS ORDERED: EMTRICITABINE/TENOFOV ALAFENAM (DESCOVY) TABLET PO SCH (13:00)
[2022-09-06] MEDS: DARUNAVIR/COB/EMTRI/TENOF (SYMTUZA) TABLET (NF) PO SCH (14:39)
[2022-09-06] MEDS ORDERED: PRENATAL VITAMINS W/ FOLIC ACID TABLET (FP) PO ONE (14:50)
[2022-09-06] MEDS: PRENATAL VITAMINS W/ FOLIC ACID TABLET (FP) PO SCH (15:19)
[2022-09-06] MEDS ORDERED: THIAMINE HCL 100 MG TABLET (FP) PO SCH (22:00)
[2022-09-06] MEDS ORDERED: MELATONIN 5 MG TABLETS PO SCH (22:00)
[2022-09-07 06:14] VITALS: RESP 18
[2022-09-07] MEDS: DARUNAVIR/COB/EMTRI/TENOF (SYMTUZA) TABLET (NF) PO SCH (08:35)
[2022-09-07 10:20] LABS: HEMATOCRIT 40.3 % (35.4-49); HEMOGLOBIN 12.6 GM/dL (11.7-16.9); MCH 22.9 pg (25.7-33.7); MCHC 31.1 g/dl (32.0-35.9); MEAN CELL VOLUME 73.6 fl (80-96); MEAN PLT VOLUME 10.1 fl (7.5-11.1); PLATELET COUNT 178 10^3/uL (134-434); RBC 5.48 M/mm3 (4.00-5.60); RDW 15.9 % (11.9-15.9); WHITE BLOOD COUNT 3.9 K/mm3 (4.0-10.0)
[2022-09-07] MEDS: PRENATAL VITAMINS W/ FOLIC ACID TABLET (FP) PO SCH (10:52)
[2022-09-07 10:53] LABS: BLOOD UREA NITROGEN 14.4 mg/dL (7-18); CALCIUM 8.5 mg/dL (8.5-10.1)
[2022-09-07 10:54] LABS: ALBUMIN 3.3 g/dl (3.4-5.0)
[2022-09-07 10:56] LABS: CREATININE 0.8 mg/dL (0.55-1.3)
[2022-09-07 10:58] LABS: BILIRUBIN,TOTAL 0.5 mg/dL (0.2-1); TOT PROT 7.4 g/dl (6.4-8.2)
[2022-09-07 16:59] VITALS: BP 113/68; PULSE 69; TEMP 97.7
== END 2022-09-07 19:37 | disposition home or self-care (01) | DRG 774 ==
LOC: YASAS 11:11 → Y6N 13:54
PROVIDERS: ADMIT Allergy & Immunology; ATTEND Surgery
PROC: HZ2ZZZZ Detoxification Services for Substance Abuse Treatment (ICD-10-PCS; principal; 2022-09-06)
DX: F10.230 Alcohol dependence with withdrawal, uncomplicated (principal); F14.20 Cocaine dependence, uncomplicated; F16.20 Hallucinogen dependence, uncomplicated; F15.10 Other stimulant abuse, uncomplicated; F17.210 Nicotine dependence, cigarettes, uncomplicated; Z21 Asymptomatic human immunodeficiency virus [HIV] infection status; R63.4 Abnormal weight loss; Z68.20 Body mass index [BMI] 20.0-20.9, adult
CPT/HCPCS: 36415; 80053; 85027; 86780; C9803-CS; U0003; U0005

== ENCOUNTER 2023-04-17 13:41 | Inpatient (IN) | payer OTHER ==
[2023-04-17 14:54] VITALS: BMI 19.2
[2023-04-17] MEDS ORDERED: ACETAMINOPHEN 325 MG TABLET (FP) PO PRN (16:34)
[2023-04-17] MEDS ORDERED: ONDANSETRON *ODT* 4 MG TABLET SL PRN (16:34)
[2023-04-17] MEDS ORDERED: IBUPROFEN 600 MG TABLET (FP) PO PRN (16:34)
[2023-04-17] MEDS ORDERED: LOPERAMIDE HCL 2 MG CAPSULE PO PRN (16:34)
[2023-04-17] MEDS ORDERED: BISMUTH SUBSALICYLATE 524 MG/30 ML PO PRN (16:34)
[2023-04-17] MEDS ORDERED: guaiFENesin 600 MG TABLET.ER (FP) PO PRN (16:34)
[2023-04-17] MEDS ORDERED: METHOCARBAMOL 500 MG TABLET PO PRN (16:34)
[2023-04-17] MEDS ORDERED: POLYETHYLENE GLYCOL (HEALTHYLAX) 3350 17 GM PACKET PO PRN (16:34)
[2023-04-17] MEDS ORDERED: IBUPROFEN 400 MG TABLET (FP) PO PRN (16:34)
[2023-04-17] MEDS ORDERED: NALOXONE HCL (KLOXXADO) 8 MG SPRAY NS PRN (16:34)
[2023-04-17] MEDS ORDERED: NALOXONE HCL 0.4 MG/ML VIAL IM PRN (16:34)
[2023-04-17] MEDS ORDERED: DICYCLOMINE HCL 10 MG CAPSULE PO PRN (16:34)
[2023-04-17] MEDS ORDERED: BENZOCAINE/MENTHOL (CHLORASEPTIC ) LOZENGE MM PRN (16:34)
[2023-04-17] MEDS ORDERED: MAGNESIUM HYDROX 2400MG/30ML ORAL SUSPENSION 30 ML CUP PO PRN (16:34)
[2023-04-17] MEDS ORDERED: hydrOXYzine PAMOATE 25 MG CAPSULE (FP) PO PRN (16:34)
[2023-04-17] MEDS ORDERED: BENZONATATE 200 MG CAPSULE PO PRN (16:34)
[2023-04-17] MEDS ORDERED: MAG HYDROX/AL HYDROX/SIMETH 30 ML UNIT-DOSE CUP PO PRN (16:34)
[2023-04-17] MEDS ORDERED: THIAMINE HCL 100 MG TABLET (FP) PO SCH (22:00)
[2023-04-17] MEDS ORDERED: MELATONIN 5 MG TABLETS PO SCH (22:00)
[2023-04-18] MEDS ORDERED: BICTEGRAV/EMTRICIT/TENOFOV (BIKTARVY) 50-200-25 MG TABLET PO SCH (08:00)
[2023-04-18] MEDS ORDERED: PRENATAL VITAMINS W/ FOLIC ACID TABLET (FP) PO SCH (10:00)
[2023-04-18 10:41] LABS: HEMATOCRIT 38.6 % (35.4-49); MCH 22.9 pg (25.7-33.7); MCHC 31.2 g/dl (32.0-35.9); MEAN CELL VOLUME 73.3 fl (80-96); MEAN PLT VOLUME 10.1 fl (7.5-11.1); PLATELET COUNT 158 10^3/uL (134-434); RBC 5.27 M/mm3 (4.00-5.60); RDW 16.6 % (11.9-15.9); WHITE BLOOD COUNT 3.8 K/mm3 (4.0-10.0)
[2023-04-18 10:57] LABS: POTASSIUM 3.9 mmol/L (3.5-5.1)
[2023-04-18 11:02] LABS: CALCIUM 8.3 mg/dL (8.5-10.1)
[2023-04-18 11:03] LABS: ALBUMIN 2.7 g/dl (3.4-5.0); BLOOD UREA NITROGEN 11.9 mg/dL (7-18)
[2023-04-18 11:06] LABS: CREATININE 0.9 mg/dL (0.55-1.3)
[2023-04-18 11:07] LABS: BILIRUBIN,TOTAL 0.2 mg/dL (0.2-1); TOT PROT 6.4 g/dl (6.4-8.2)
[2023-04-18 21:55] VITALS: BP 96/58; PULSE 67; RESP 18; TEMP 98.6
== END 2023-04-18 22:20 | disposition home or self-care (01) | DRG 770 ==
LOC: YASAS 13:41 → Y3N 16:45
PROVIDERS: ADMIT Allergy & Immunology; ATTEND Surgery
PROC: HZ2ZZZZ Detoxification Services for Substance Abuse Treatment (ICD-10-PCS; principal; 2023-04-17)
DX: F10.20 Alcohol dependence, uncomplicated (principal); F14.20 Cocaine dependence, uncomplicated; F16.20 Hallucinogen dependence, uncomplicated; F17.210 Nicotine dependence, cigarettes, uncomplicated; F19.24 Other psychoactive substance dependence with psychoactive substance-induced mood disorder; Z21 Asymptomatic human immunodeficiency virus [HIV] infection status
CPT/HCPCS: 36415; 80053; 85027; 86780; 87635

== ENCOUNTER 2023-10-26 15:42 | Inpatient (IN) | payer OTHER ==
[2023-10-26 18:14] VITALS: BMI 20.5
[2023-10-26] MEDS ORDERED: BENZONATATE 200 MG CAPSULE PO PRN (21:14)
[2023-10-26] MEDS ORDERED: guaiFENesin 600 MG TABLET.ER (FP) PO PRN (21:14)
[2023-10-26] MEDS ORDERED: BENZOCAINE/MENTHOL (CHLORASEPTIC ) LOZENGE MM PRN (21:14)
[2023-10-26] MEDS ORDERED: IBUPROFEN 400 MG TABLET (FP) PO PRN (21:14)
[2023-10-26] MEDS ORDERED: MAGNESIUM HYDROX 2400MG/30ML ORAL SUSPENSION 30 ML CUP PO PRN (21:14)
[2023-10-26] MEDS ORDERED: ACETAMINOPHEN 325 MG TABLET (FP) PO PRN (21:14)
[2023-10-26] MEDS ORDERED: IBUPROFEN 600 MG TABLET (FP) PO PRN (21:14)
[2023-10-26] MEDS ORDERED: MAG HYDROX/AL HYDROX/SIMETH 30 ML UNIT-DOSE CUP PO PRN (21:14)
[2023-10-26] MEDS ORDERED: NICOTINE POLACRILEX 2 MG GUM BUC PRN (21:14)
[2023-10-26] MEDS ORDERED: LOPERAMIDE HCL 2 MG CAPSULE PO PRN (21:14)
[2023-10-26] MEDS ORDERED: POLYETHYLENE GLYCOL (HEALTHYLAX) 3350 17 GM PACKET PO PRN (21:14)
[2023-10-26] MEDS: THIAMINE HCL 100 MG TABLET (FP) PO SCH (22:25)
[2023-10-26] MEDS: MELATONIN 5 MG TABLETS PO SCH (22:25)
[2023-10-27] MEDS: PRENATAL VITAMINS W/ FOLIC ACID TABLET (FP) PO SCH (10:00)
[2023-10-27] MEDS: BICTEGRAV/EMTRICIT/TENOFOV (BIKTARVY) 50-200-25 MG TABLET PO SCH (11:47)
[2023-10-27 12:42] LABS: HEMATOCRIT 39.3 % (35.4-49); HEMOGLOBIN 12.4 GM/dL (11.7-16.9); MCH 23.8 pg (25.7-33.7); MCHC 31.7 g/dl (32.0-35.9); MEAN CELL VOLUME 75.1 fl (80-96); MEAN PLT VOLUME 10.3 fl (7.5-11.1); PLATELET COUNT 158 10^3/uL (134-434); RBC 5.23 M/mm3 (4.00-5.60); RDW 16.1 % (11.9-15.9); WHITE BLOOD COUNT 4.6 K/mm3 (4.0-10.0)
[2023-10-27 12:42] LABS: PH,URINE 6.5 (5.0-8.0); URINE APPEARANCE CLEAR; URINE BILIRUBIN NEGATIVE (NEGATIVE); URINE COLOR YELLOW; URINE GLUCOSE (UA) NEGATIVE (NEGATIVE); URINE KETONE TRACE (NEGATIVE); URINE LEUK ESTERASE NEGATIVE (NEGATIVE); URINE NITRITE NEGATIVE (NEGATIVE); URINE PROTEIN NEGATIVE (NEGATIVE)
[2023-10-27 13:22] LABS: CHLORIDE 113 mmol/L (98-107); POTASSIUM 4.4 mmol/L (3.5-5.1); SODIUM 143 mmol/L (136-145)
[2023-10-27 13:24] LABS: CALCIUM 8.4 mg/dL (8.5-10.1)
[2023-10-27 13:25] LABS: ANION GAP 5 mmol/L (4-13); BLOOD UREA NITROGEN 13.9 mg/dL (7-18); CO2 25 mmol/L (21-32); GLUCOSE,RANDOM 87 mg/dL (74-106)
[2023-10-27 13:28] LABS: CREATININE 0.7 mg/dL (0.55-1.3); SGOT/AST 16 U/L (15-37); SGPT/ALT 20 U/L (13-61)
[2023-10-27 13:29] LABS: TOT PROT 6.6 g/dl (6.4-8.2)
[2023-10-27 13:31] LABS: ALK PHOS 48 U/L (45-117); BILIRUBIN,TOTAL 0.2 mg/dL (0.2-1)
[2023-10-27 13:55] LABS: SYPHILIS W/ RPR CONF NON-REACTIVE (NONREACTIVE)
[2023-10-27] MEDS: TUBERCULIN PPD 5 TU/0.1ML VIAL ID ONE (15:56)
[2023-10-29 06:33] VITALS: BP 100/67; PULSE 67; RESP 18; TEMP 98.6
== END 2023-10-29 14:30 | disposition home or self-care (01) | DRG 772 ==
LOC: YASAS 15:42 → Y3NR 22:05 → Y3E 10-27 11:02
PROVIDERS: ADMIT Allergy & Immunology; ATTEND Psychiatry & Neurology Pain Medicine
PROC: HZ42ZZZ Group Counseling for Substance Abuse Treatment, Cognitive-Behavioral (ICD-10-PCS; principal; 2023-10-26)
DX: F10.20 Alcohol dependence, uncomplicated (principal); F14.20 Cocaine dependence, uncomplicated; F16.20 Hallucinogen dependence, uncomplicated; F17.210 Nicotine dependence, cigarettes, uncomplicated; B20 Human immunodeficiency virus [HIV] disease; G62.9 Polyneuropathy, unspecified
CPT/HCPCS: 36415; 80053; 80305; 80307; 81003; 85027; 86780; 86803; 87635; 87811